=== PATIENT | male | born 1980 | race Caucasian/White ===

== ENCOUNTER 2024-08-25 15:24 | Emergency (ER) | payer MEDICAID, SELFPAY ==
--- NOTE | 2024-08-25 | ECG_ITS ---
Test Reason : leg swelling Blood Pressure : */* mmHG Vent. Rate : 61 BPM Atrial Rate : 61 BPM P-R Int : 182 ms QRS Dur : 90 ms QT Int : 430 ms P-R-T Axes : 32 16 18 degrees QTcB Int : 432 ms Normal sinus rhythm Normal ECG No previous ECGs available Referred By: Generic ED Physician Electronically Signed By: Yeison Whipple
[2024-08-25 15:26] VITALS: BP 123/59; PULSE 68; RESP 18; TEMP 36.2; O2SAT 97; BMI 36.7
[2024-08-25 15:50] LABS: MANUAL DIFF FLAG NO
[2024-08-25 15:51] LABS: Hematocrit 37.1 % (42.0-52.0); Hemoglobin 12.8 g/dl (14.0-18.0); Imm Gran Abs Auto 0.02 X10*3/uL (0.00-0.03); Imm Gran Pct Auto 0.3 % (0.0-0.4); Lymphocytes Absolute Auto 2.1 X10*3/uL (1.2-4.9); Mean Corpuscular HGB Conc 34.5 g/dl (31.0-36.0); Mean Corpuscular Hemoglobin 29.7 pg (27.0-33.0); Mean Corpuscular Volume 86.1 fL (80.0-98.0); NRBC Abs Auto 0.000 X10*3/uL (0.0-0.012); NRBC Pct Auto 0.0 /100WBC (0.0-0.2); Platelet Count 184 X10*3/uL (160-400); Red Blood Count 4.31 X10*6/uL (4.60-5.80); White Blood Count 7.7 X10*3/uL (4.8-10.8)
[2024-08-25 16:08] LABS: Alanine Aminotransferase 25 U/L (0-40); Albumin Level 4.2 g/dL (3.5-5.0); Alkaline Phosphatase 72 U/L (39-117); Anion Gap 9 (12-20); Aspartate Amino Transferase 26 U/L (5-37); Blood Urea Nitrogen 14 mg/dL (9-16); Calcium 8.8 mg/dL (8.4-10.2); Carbon Dioxide 32 mmol/L (22-29); Chloride 103 mmol/L (96-108); Creatinine Clr Calc Pharmacy 116.9; Estimated Glomerular Filt Rate > 60; Magnesium 1.8 mg/dL (1.6-2.6); Potassium 4.4 mmol/L (3.3-5.1); Sodium 140 mmol/L (135-145); Total Protein 7.0 g/dL (6.5-8.0)
[2024-08-25 16:11] LABS: B Type Natriuretic Peptide 24 pg/mL (<100)
[2024-08-25 18:09] VITALS: BP 105/50; PULSE 52; RESP 16; TEMP 36.6; O2SAT 95
--- NOTE | 2024-08-25 18:11 | ED.GENADULT ---
HPI - General Adult General Chief complaint: General Medical Stated complaint: Swollen ankles Time Seen by Provider: 08/25/24 18:08 Source: patient Limitations: no limitations History of Present Illness ED Provider: Slime Teague PA-C HPI narrative: 43-year-old male with a history of opiate use disorder presents with bilateral lower extremity swelling for 3 days. Patient states he has had prior episodes that have resolved on their own. Denies chest pain, shortness of breath, orthopnea. Denies redness of lower extremity or fever. Related Data Allergies Allergy/AdvReac Type Severity Reaction Status Date / Time No Known Allergies Allergy Verified 08/25/24 15:29 Review of Systems Review of Systems: Yes all other systems are reviewed and are negative Constitutional: Constitutional: Denies fatigue and Denies fever(s) Cardiovascular: Cardiovascular: Denies chest pain, Reports leg edema, Denies dyspnea and Denies dyspnea on exertion Respiratory: Respiratory: Denies dyspnea and Denies dyspnea on exertion Musculoskeletal: Musculoskeletal: Denies arthralgias Integumentary/Breasts: Skin/Breast: Denies erythema Endocrine: Endocrine: Denies fatigue PMFSH Past Medical History Attestation statement: The following information was validated with the patient. Social History Social History Alcohol intake: current Alcohol type: beer and hard liquor Smoked in Last 30 Days: Yes Use of substances other than those prescribed or required for medical reasons: Yes Substance Use Type: Marijuana Advance Directives: No Advance Directives Information Provided: No Physical Exam ED Vital Signs: Vital Signs - 24 hr 08/25/24 15:26 08/25/24 18:09 Temperature 97.1 F 98 F Pulse Rate 68 52 Respiratory Rate 18 16 Blood Pressure 123/59 L 105/50 L Pulse Oximetry 97 95 Oxygen Delivery Method Room Air Room Air BMI result Body Mass Index 36.7 Const Other: Alert Orientation/consciousness: patient oriented x3 Resp Effort & Inspection: normal respiratory effort Cardio Other: Normal peripheral perfusion Skin Other: Warm dry no rash Neuro General: patient oriented x3, gait normal, no focal motor deficits and CN's II-XI intact bilaterally Extrem Other: Pitting edema noted bilaterally, the lower extremities are symmetric, they both are swollen, subtle hyperpigmentation of the skin, no overlying erythema or overt warmth Psych Other: Cooperative Medical Decision Making Medical Decision Making [facility] Narrative: 43-year-old male with a history of opiate use disorder presents with bilateral lower extremity swelling for 3 days. Patient states he has had prior episodes that have resolved on their own. Denies chest pain, shortness of breath, orthopnea. Denies redness of lower extremity or fever. Problem: Opiate use disorder History: Per patient I have considered the following differential diagnoses: Medication adverse reaction, DVT, new heart failure, liver dysfunction, renal dysfunction Plan: Screening labs including BNP, metabolic panel and liver function obtained from triage, everything is normal. The patient has had symptoms in the past and then they resolved. At this time the patient has dependent edema. He is on multiple medications, including gabapentin, which can cause peripheral edema. I have discussed with the patient he needs to follow up with the his prescriber, to either discontinue the gabapentin in place him on another medication for his chronic pain, versus implementing Lasix. At this time I am suggesting compression sleeves. I have independently reviewed the following tests: Labs: No leukocytosis, not anemic, BNP not elevated, liver function normal, creatinine 1.06 Lab Data 08/25/24 15:41 08/25/24 15:41 Labs: Lab Results 08/25/24 Range/Units 15:41 WBC 7.7 (4.8-10.8) X10*3/uL RBC 4.31 L (4.60-5.80) X10*6/uL Hgb 12.8 L (14.0-18.0) g/dl Hct 37.1 L (42.0-52.0) % MCV 86.1 (80.0-98.0) fL MCH 29.7 (27.0-33.0) pg MCHC 34.5 (31.0-36.0) g/dl RDW 12.9 (11.0-16.0) % Plt Count 184 (160-400) X10*3/uL MPV 8.9 L (9.4-12.4) fL Immature Gran % (Auto) 0.3 (0.0-0.4) % Neut % (Auto) 59.6 (45-73) % Lymph % (Auto) 27.4 (20-40) % [place] % (Auto) 9.9 (2-11) % Eos % (Auto) 2.3 (0-4) % Baso % (Auto) 0.5 (0-2) % Lymph # (Auto) 2.1 (1.2-4.9) X10*3/uL [place] # (Auto) 0.8 (0.1-1.2) X10*3/uL Eos # (Auto) 0.2 (0.0-0.4) X10*3/uL Baso # (Auto) 0.0 (0.0-0.2) X10*3/uL Abs Immat Gran (auto) 0.02 (0.00-0.03) X10*3/uL Absolute Neuts (auto) 4.6 (2.0-8.3) x10*3/uL Absolute Nucleated RBC 0.000 (0.0-0.012) X10*3/uL Nucleated RBC % (auto) 0.0 (0.0-0.2) /100WBC Sodium 140 (135-145) mmol/L Potassium 4.4 (3.3-5.1) mmol/L Chloride 103 (96-108) mmol/L Carbon Dioxide 32 H (22-29) mmol/L Anion Gap 9 L (12-20) BUN 14 (9-16) mg/dL Creatinine 1.06 (0.5-1.4) mg/dL Estim Creat Clear Calc 116.9 Estimated GFR > 60 Random Glucose 97 (60-115) mg/dL Calcium 8.8 (8.4-10.2) mg/dL Magnesium 1.8 (1.6-2.6) mg/dL Total Bilirubin 0.7 (0.0-1.0) mg/dL Direct Bilirubin 0.2 (0.0-0.5) mg/dL AST 26 (5-37) U/L ALT 25 (0-40) U/L Alkaline Phosphatase 72 (39-117) U/L B-Natriuretic Peptide 24 (<100) pg/mL Total Protein 7.0 (6.5-8.0) g/dL Albumin 4.2 (3.5-5.0) g/dL Discharge Plan Discharge Clinical Impression: Dependent edema Patient Disposition: Xfer Inpatient Rehab Fac Transfer Details: Already a patient there, being discharged back to the rehab Instructions: Leg Edema (ED) Additional Instructions: All of your screening labs were normal. You have dependent edema, likely induced by the gabapentin. You need to have discussion with your medication prescriber about stopping the gabapentin and trying a new medication for your pain, and/or implementing Lasix to alleviate the swelling. In the meantime, you can use compression stockings, they can be purchased anywhere; [place], [employer], [employer] etc. Print Language: Setswana
--- NOTE | 2024-08-25 18:40 | PC.NURSE ---
Spoke w/ recovery sales program manager Honey and per pts admission updated on pts care. Request to call if pt d/c'd will arrange transportation . If pt admitted, pt will not lose bed. [phone]
--- NOTE | 2024-08-26 18:18 | ECG_ITS ---
Test Reason : chf Blood Pressure : */* mmHG Vent. Rate : 47 BPM Atrial Rate : 47 BPM P-R Int : 194 ms QRS Dur : 92 ms QT Int : 470 ms P-R-T Axes : 40 18 15 degrees QTcB Int : 415 ms Sinus bradycardia Otherwise normal ECG When compared with ECG of 25-Aug-2024 15:33, No significant change was found Referred By: Kayla Reid Electronically Signed By: Yeison Whipple
== END 2024-08-25 20:00 ==
PROVIDERS: Emergency Provider Emergency Medicine Emergency Medical Services
DX: R60.0 Localized edema (principal); R06.02 Shortness of breath; R00.1 Bradycardia, unspecified; Z79.899 Other long term (current) drug therapy
CPT/HCPCS: 36415; 80053; 82248; 83735; 83880; 85025; 93005; 99283; 99284

== ENCOUNTER → 2024-08-25 15:33 | Outpatient (BNV) | payer MEDICAID, SELFPAY | PROVIDERS: Emergency Provider Emergency Medicine Emergency Medical Services; Visit Provider Internal Medicine Cardiovascular Disease | DX: R22.43 Localized swelling, mass and lump, lower limb, bilateral (principal) | CPT/HCPCS: 93010 ==

== ENCOUNTER → 2024-08-26 18:18 | Outpatient (BNV) | payer MEDICAID, SELFPAY | PROVIDERS: Emergency Provider Emergency Medicine Emergency Medical Services; Visit Provider Internal Medicine Cardiovascular Disease | DX: R00.1 Bradycardia, unspecified (principal) | CPT/HCPCS: 93010 ==

== ENCOUNTER 2024-10-25 15:18 | Emergency (ER) | payer MEDICAID, SELFPAY ==
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
--- OUTSIDE RECORDS SUMMARY | 2024-09-23 05:00 | XMS_ITS ---
Author Organization [facility] Address [address] [place] [id number] Care Team Providers Care Civil Attorney Name Role Phone Octaviano Seay Primary Care Provider REASON FOR VISIT Office: f/u appt, [facility] [place] Social History Sex Assigned At : Social History Observation Description Sex Assigned At Male Encounters Encounter Location Date Provider Diagnosis [facility] [address] [place] [phone] 09/23/2024 Octaviano Seay Encounter for screening for COVID-19 Z11.52 Assessments Encounter Date Diagnosis (ICD Code) Assessment Notes Treatment Notes Treatment Clinical Notes Section Notes 09/23/2024 Encounter for screening for COVID-19 (ICD-10 - [...] you are having concerning symptoms for COVID-19. 09/23/2024 Other Plan Of Treatment Treatment Notes Assessment [...] symptoms for COVID-19. Next Appt Details Provider Name:Kathy Franklin, 10/27/2024 10:30:00 AM, [address] [place] [address], [phone], Provider Name:Octaviano austin, 11/09/2024 10:30:00 AM, [address] [place] [address], [phone], Progress Notes * Mikael ANG MDOB: 0 (43 yo M)Acc No.[id number]:09/23/2024 Progress Notes Patient: Mikael CONTE Provider: CHELLE Ortiz :1980 A ge:43 Y S ex:Male Date:09/23/2024 Address:[address] [place], [place] [id number] Subjective: * Chief Complaints: * 1 . Office: f/u appt, [facility]. * HPI: G eneral: Symptom Screen: - [...] days? If so where and why? RN/MA:. * ROS: N o acute C/P no acute SOB, No problem with urine, No heartburn or abdominal pain. Endorses being able to climb one fight of stairs without stopping due to SOB, Mood: stable, appetite: good, sleeping well. Denies new skin rashes. * Medical History: Objective: * Vitals: Assessment: * Assessment: 1. E ncounter for screening for COVID-19 - Z11.52 (Primary) Plan: * Treatment: * Images: Billing Information: * Visit Code: * Procedure Codes: Care Plan Details* * Electronic signature of Davy Seay on 10/25/2024 at 08:03 PM EDT Sign off status: Pending * Provider: CHELLE Ortiz Date: 0 09/23/2024 Generated for Maura campbell/Crystal/Elviaitting on: 0 10/25/2024 08:03 PM EDT
--- NOTE | ~2024-10-25 | CT_ITS ---
CLINICAL HISTORY: left ureteral stone? CT abdomen and pelvis without contrast Comparison: None provided Findings: Limited evaluation of soft tissues and solid organs in the absence of IV contrast. Mild bibasilar linear densities. Liver, spleen, adrenal glands, gallbladder, and pancreas are unremarkable. No renal, ureteral or bladder calculi. Mild circumferential bladder wall thickening. Normal-sized prostate gland. Nondistended stomach. Normal caliber small bowel. No obstruction. No acute appendicitis. Nonaneurysmal abdominal aorta. No free air or free fluid. No pathologically enlarged lymph nodes. No acute osseous abnormality. No lytic or sclerotic osseous lesions. Moderate-sized fat containing right inguinal hernia. Impression: 1. No acute findings identified in the abdomen or pelvis within limitation of this noncontrast exam. 2. Specifically, no evidence of obstructing renal, ureteral or bladder calculi. 3. Chronic/nonacute findings as above. This document has been electronically signed by: Zabrina Ewing MD on 10/25/2024 22:10:33
[2024-10-25 15:22] VITALS: BP 129/61; PULSE 66; RESP 16; TEMP 36.7; O2SAT 92; BMI 40.5
--- NOTE | 2024-10-25 15:22 | ED.GENADULT ---
HPI - General Adult General Chief complaint: Abdominal Pain Stated complaint: left side abd pain Time Seen by Provider: 10/25/24 20:14 Source: patient Limitations: no limitations History of Present Illness ED Provider: Slime Teague PA-C HPI narrative: 43-year-old male presents with left lower quadrant pain x4 days. Pain is constant nonradiating, unable to describe the nature of his discomfort. Associated discolored urine. Denies history of kidney stones, back pain, fever, dysuria. Denies nausea vomiting diarrhea. Related Data Previous Rx's ?Medication ?Instructions ?Recorded ketorolac 10 mg tablet 10 mg PO Q6H PRN pain #20 tabs 10/25/24 Allergies Allergy/AdvReac Type Severity Reaction Status Date / Time No Known Allergies Allergy Verified 10/25/24 15:24 Review of Systems Review of Systems: Yes all other systems are reviewed and are negative Constitutional: Constitutional: Denies fatigue and Denies fever(s) Cardiovascular: Cardiovascular: Denies chest pain and Denies dyspnea Respiratory: Respiratory: Denies dyspnea Gastrointestinal: Gastrointestinal: Reports abdominal pain, Denies diarrhea, Denies nausea and Denies vomiting Genitourinary: Genitourinary: Reports hematuria, Denies dysuria and Denies flank pain Musculoskeletal: Musculoskeletal: Denies back pain Endocrine: Endocrine: Denies fatigue PMFSH Past Medical History Attestation statement: The following information was validated with the patient. Social History Social History Alcohol intake: never Substance Use Type: Marijuana Physical Exam ED Vital Signs: Vital Signs - 24 hr 10/25/24 15:22 10/25/24 20:22 Temperature 98.1 F 97.7 F Pulse Rate 66 61 Respiratory Rate 16 16 Blood Pressure 129/61 110/53 L Pulse Oximetry 92 91 L Oxygen Delivery Method Room Air Room Air BMI result Body Mass Index 40.5 Const Other: Alert well-appearing Orientation/consciousness: patient oriented x3 Resp Effort & Inspection: normal respiratory effort Cardio Other: Normal peripheral perfusion GI Other: Abdomen is soft, nondistended, mild tenderness left lower abdomen without guarding General: Yes no CVA tenderness Back/Spine/Pelvis Back: no CVA tenderness Skin Other: Warm dry no rash Neuro General: patient oriented x3, gait normal, no focal motor deficits and CN's II-XI intact bilaterally Psych Other: Cooperative Course Course Course Narrative: Rapid medical examination performed in triage by Nia Cary PA-C. Patient is a 43 year old assigned male at presenting to the emergency department with abdominal pain. Patient states over the last 4 days he has had left lower abdominal pain. Detailed physical exam and review of systems are deferred to the photoengraving proofer. Labs ordered. Patient placed back in the waiting room pending room availability and results. Medications Administered Discontinued Medications Generic Name Dose Route Start Last Admin Trade Name Frekeegan PRN Reason Stop Dose Admin Ketorolac Tromethamine 15 mg 10/25/24 20:41 10/25/24 21:03 Ketorolac Tromethamine 15 Mg/Ml Vial IM 10/25/24 20:42 15 mg ONCE ONE Administration Medical Decision Making Medical Decision Making [facility] Narrative: 43-year-old male presents with left lower quadrant pain x4 days. Pain is constant nonradiating, unable to describe the nature of his discomfort. Associated discolored urine. Denies history of kidney stones, back pain, fever, dysuria. Denies nausea vomiting diarrhea. No known chronic issues History: Per patient I have considered the following differential diagnoses: Urinary tract infection, renal colic, pyelonephritis, diverticulitis, Plan: Patient here with focal left lower abdominal pain, thought about diverticulitis, however no active GI symptoms including diarrhea. He is expressing concern for discoloration of his urine, he is passing hematuria, perhaps he is having symptoms of renal colic. Obtaining a CT scan. Doubtful to be pyelonephritis, he has no CVA tenderness, again no active GI symptoms is afebrile. I have independently reviewed the following tests: Labs: No leukocytosis, not anemic, no electrolyte abnormality, urine not infected passing hematuria CT abdomen and pelvis:Impression: 1. No acute findings identified in the abdomen or pelvis within limitation of this noncontrast exam. 2. Specifically, no evidence of obstructing renal, ureteral or bladder calculi. 3. Chronic/nonacute findings as above. Differential Diagnosis Differential Diagnoses: The differential diagnosis associated with the presentation includes See medical decision-making Admission/Observation Consideration of admission/observation: Escalation of care including admission/observation considered Not applicable Lab Data [facility] Lab Attestation statement: I reviewed the patient's lab results. 10/25/24 15:38 10/25/24 15:38 Labs: Lab Results 10/25/24 10/25/24 Range/Units 15:38 20:12 WBC 7.7 (4.8-10.8) X10*3/uL RBC 4.37 L (4.60-5.80) X10*6/uL Hgb 13.0 L (14.0-18.0) g/dl Hct 37.5 L (42.0-52.0) % MCV 85.8 (80.0-98.0) fL MCH 29.7 (27.0-33.0) pg MCHC 34.7 (31.0-36.0) g/dl RDW 12.8 (11.0-16.0) % Plt Count 210 (160-400) X10*3/uL MPV 9.4 (9.4-12.4) fL Immature Gran % (Auto) 0.4 (0.0-0.4) % Neut % (Auto) 49.5 (45-73) % Lymph % (Auto) 33.6 (20-40) % [place] % (Auto) 11.7 H (2-11) % Eos % (Auto) 4.0 (0-4) % Baso % (Auto) 0.8 (0-2) % Lymph # (Auto) 2.6 (1.2-4.9) X10*3/uL [place] # (Auto) 0.9 (0.1-1.2) X10*3/uL Eos # (Auto) 0.3 (0.0-0.4) X10*3/uL Baso # (Auto) 0.1 (0.0-0.2) X10*3/uL Abs Immat Gran (auto) 0.03 (0.00-0.03) X10*3/uL Absolute Neuts (auto) 3.8 (2.0-8.3) x10*3/uL Absolute Nucleated RBC 0.000 (0.0-0.012) X10*3/uL Nucleated RBC % (auto) 0.0 (0.0-0.2) /100WBC Sodium 140 (135-145) mmol/L Potassium 4.4 (3.3-5.1) mmol/L Chloride 105 (96-108) mmol/L Carbon Dioxide 28 (22-29) mmol/L Anion Gap 11 L (12-20) BUN 16 (9-16) mg/dL Creatinine 1.09 (0.5-1.4) mg/dL Estim Creat Clear Calc 116.3 Estimated GFR > 60 Random Glucose 93 (60-115) mg/dL Calcium 8.8 (8.4-10.2) mg/dL Magnesium 1.7 (1.6-2.6) mg/dL Total Bilirubin 0.5 (0.0-1.0) mg/dL AST 29 (5-37) U/L ALT 27 (0-40) U/L Alkaline Phosphatase 80 (39-117) U/L Total Protein 7.5 (6.5-8.0) g/dL Albumin 4.2 (3.5-5.0) g/dL Urine Color Yellow Urine Appearance Clear Urine pH 6.0 (5.0-9.0) Ur Specific [place] 1.020 (1.005-1.025) Urine Protein Negative (Neg-Trace) mg/dL Urine Glucose (UA) Negative (Negative) mg/dL Urine Ketones Negative (Negative) mg/dL Urine Blood Trace H (Negative) Urine Nitrite Negative (Negative) Ur Leukocyte Esterase Trace H (Negative) Urine RBC 3-5 H (0-2) /HPF Urine WBC 0-5 (0-5) /HPF Ur Squamous Epith Cells 0-2 (0-2) /HPF Urine Bacteria None Seen (None Seen) Hyaline Casts 0-2 (0-2) /LPF Radiology Impression Discussion of test interpretation with radiology: I have reviewed the radiologist's reading. Discharge Plan Discharge Clinical Impression: Hematuria Patient Disposition: Home, Self-Care Instructions: Hematuria (ED) Additional Instructions: All of your screening labs were overall normal, with the exception of your urinalysis, you are passing blood in your urine, but there was no infection. The CT scan of your abdomen and pelvis was normal as well. You need to follow up with our urology service for further assessment. I am providing you with a contact. Call tomorrow to schedule a follow up appointment. Use the ketorolac as needed for pain, take this medication with food. Prescriptions: New ketorolac 10 mg tablet 10 mg PO Q6H PRN (Reason: pain) Qty: 20 0RF Rx Instructions: maximum total duration of 5 days from all oral, intranasal, or parenteral formulations. The patient received an intramuscular dose of Toradol here in the emergency room Referrals: Fuad Haddad MD [Physician, Urology] Referral Note: hematuria Interventions: ED Discharge Assessment Last Done: 10/25/24 23:21 Discharge Date/Time: 10/25/24 23:22 Print Language: Chinese
[2024-10-25 15:41] LABS: MANUAL DIFF FLAG NO
[2024-10-25 15:43] LABS: Hematocrit 37.5 % (42.0-52.0); Hemoglobin 13.0 g/dl (14.0-18.0); Imm Gran Abs Auto 0.03 X10*3/uL (0.00-0.03); Imm Gran Pct Auto 0.4 % (0.0-0.4); Lymphocytes Absolute Auto 2.6 X10*3/uL (1.2-4.9); Mean Corpuscular HGB Conc 34.7 g/dl (31.0-36.0); Mean Corpuscular Hemoglobin 29.7 pg (27.0-33.0); Mean Corpuscular Volume 85.8 fL (80.0-98.0); NRBC Abs Auto 0.000 X10*3/uL (0.0-0.012); NRBC Pct Auto 0.0 /100WBC (0.0-0.2); Platelet Count 210 X10*3/uL (160-400); Red Blood Count 4.37 X10*6/uL (4.60-5.80); White Blood Count 7.7 X10*3/uL (4.8-10.8)
[2024-10-25 16:04] LABS: Alanine Aminotransferase 27 U/L (0-40); Albumin Level 4.2 g/dL (3.5-5.0); Alkaline Phosphatase 80 U/L (39-117); Anion Gap 11 (12-20); Aspartate Amino Transferase 29 U/L (5-37); Blood Urea Nitrogen 16 mg/dL (9-16); Calcium 8.8 mg/dL (8.4-10.2); Carbon Dioxide 28 mmol/L (22-29); Chloride 105 mmol/L (96-108); Creatinine Clr Calc Pharmacy 116.3; Estimated Glomerular Filt Rate > 60; Magnesium 1.7 mg/dL (1.6-2.6); Potassium 4.4 mmol/L (3.3-5.1); Sodium 140 mmol/L (135-145); Total Protein 7.5 g/dL (6.5-8.0)
--- OUTSIDE RECORDS SUMMARY | 2024-10-25 20:04 | XMS_ITS | Patient Health Record ---
Author Organization 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 Name Role Phone Octaviano Seay Primary Care Provider [phone] Kathy Franklin Unavailable [phone] [facility], Nursing Unavailable [phone] Mira Rizzo Unavailable [phone] Allergies No Known Allergies Results Component Value Reference Range Notes RAPID PLASMA REAGIN WITH REF CHRISTIANO TO TITER Reviewed date:04/14/2024 07:14:31 PM Interpretation:Positive Performing Lab: Notes/Report: RPR Reactive Nonreactive RAPID PLASMA REAGIN WITH REF CHRISTIANO TO TITER Reviewed date:04/30/2024 05:26:14 PM Interpretation:onnreactive Performing Lab: Notes/Report: RPR Nonreactive Nonreactive COMPREHENSIVE METABOLIC PANE L Reviewed date:01/09/2024 11:38:28 AM Interpretation:Normal Performing Lab: Notes/Report: Sodium 139 133-145 mmol/L Potassium 4.3 3.5-5.5 mmol/L Chloride 105 96-110 mmol/L CO2 28 21-32 mmol/L Anion Gap 6 3-11 Glucose 148 70-100 mg/dL BUN 15 5-25 mg/dL Creatinine 0.97 0.70-1.30 mg/dL eGFR 99 >=60 mL/min/1.73m2 Calculati on based on the?Chronic Kidney Disease Epidemiology Collaboration (CKD-EPI) equation refit?without adjustment for race. BUN/Creatinine Ratio 15.5 Calcium 8.9 8.5-10.5 mg/dL AST (SGOT) 15 10-42 unit/L ALT (SGPT) 20 10-60 unit/L Alkaline Phosphatase 92 42-121 unit/L Total Protein 7.2 6.0-8.0 g/dL Albumin 3.7 3.2-5.0 g/dL Total Bilirubin 0.3 0.0-1.4 mg/dL COMPLETE BLOOD COUNT Reviewed date:01/09/2024 11:37:29 AM Interpretation:Abnormal Performing Lab: Notes/Report: WBC 8.0 4.8-10.8 K/mcL RBC 4.40 4.50-5.50 M/mcL Hemoglobin 13.1 13.5-17.5 g/dL Hematocrit 40.4 42.0-54.0 % MCV 91.2 79.0-98.0 FL MCH 29.6 27.0-32.0 pcg MCHC 32.4 32.0-37.0 g/dL RDW 12.8 11.0-15.0 % Platelets 220 130-400 K/mcL MPV 10.9 7.0-11.0 FL NRBC 0.0 <1.0 % NRBC Absolute 0.00 <0.10 K/mcL PROTHROMBIN TIME WITH INR Reviewed date:01/09/2024 11:36:03 AM Interpretation:Normal Performing Lab: Notes/Report: Protime 12.6 10.6-13.9 sec INR 1.0 HEPATITIS C VIRUS QUANTITATI VE MOLECULAR STUDY Reviewed date:01/16/2024 09:46:21 AM Interpretation:Positive Performing Lab: Notes/Report: HCV Qual Interp Detected Not Detected HCV RNA Quantitative 36 <12 I Unit/mL HCV RNA Quantitative Log 1.56 <1.08 Log IU/mL HEPATITIS A ANTIBODY TOTAL W ITH REFLEX IGM Reviewed date:01/09/2024 11:36:55 AM Interpretation:no Hep A immunity Performing Lab: Notes/Report: Over the counter supplements containing high doses of biotin may interfere with this assay. If interference is suspected, patients shoud be retested after refraining from biotin supplements for 72 hours. Hep A Total Ab Negative Negative AST, ALT, BILIRUBIN ELR STAT E REPORTABLES Reviewed date:01/09/2024 11:35:56 AM Interpretation:Normal Performing Lab: Notes/Report: ALT (SGPT) 20 10-60 unit/L AST (SGOT) 15 10-42 unit/L Total Bilirubin 0.3 0.0-1.4 mg/dL LIVER FIBROSIS, FIBROTEST-AC TITEST PANEL Reviewed date:01/20/2024 07:03:39 AM Interpretation:f1 Performing Lab: Notes/Report: Fibrosis Score 0.28 Fibrosis Stage F1 Fibrosis Interpretation SEE NOTE minimal fibrosis Fibro Test Score (f) Metavir Score f>=0 and f<=0.21 : F0 (no fibrosis) f>0.21 and f<=0.27 : F0-F1 (no fibrosis) f>0.27 and f<=0.31 : F1 (minimal fibrosis) f>0.31 and f<=0.48 : F1-F2 (minimal fibrosis) f>0.48 and f<=0.58 : F2 (moderate fibrosis) f>0.58 and f<=0.72 : F3 (advanced fibrosis) f>0.72 and f<=0.74 : F3-F4 (advanced fibrosis) f>0.74 and f<=1.00 : F4 (severe fibrosis) Necroinflammat Activity Score 0.01 Necroinflammat Activity Grade A0 Necroinflammat Interpretation SEE NOTE no activity ActiTest Score (a) Metavir Score a>=0 and a<=0.17 : A0 (no activity) a>0.17 and a<=0.29 : A0-A1 (no activity) a>0.29 and a<=0.36 : A1 (minimal activity) a>0.36 and a<=0.52 : A1-A2 (minimal activity) a>0.52 and a<=0.60 : A2 (significant activity) a>0.60 and a<=0.62 : A2-A3 (significant activity) a>0.62 and a<=1.00 : A3 (severe activity) Bilirubin Total 0.3 0.2-1.2 mg/dL Gamma Glutamyl Transferase (GGT) 31 3-95 U/L Alanine Aminotransferase (ALT) 7 9-46 U/L [id number] 346 106-279 mg/dL Haptoglobin 158 43-212 mg/dL Apolipoprotein A1 156 94-176 mg/dL Reference ID [id number] Footnote SEE NOTE The reliability of results is dependent on compliance with the preanalytical and analytical conditions recommended by [employer]. The tests have to be deferred for: acute hemolysis, acute hepatitis, acute inflammation, extra hepatic cholestasis. The advice of a specialist should be sought for interpretation in chronic hemolysis and Gilbert's syndrome. The test interpretation is not validated in liver transplant patients. Isolated extreme values of one of the components should lead to caution in interpreting the results. In case of discordance between a biopsy result and a test, it is recommended to seek the advice of a specialist. The causes of these discordances could be due to a flaw of the test or to a flaw in the biopsy: i.e. a liver biopsy has a 33% variability rate for one fibrosis stage. FibroTest is interpretable for chronic hepatitis B and C, alcoholic and non alcoholic steatosis. ActiTest is interpretable for chronic hepatitis B and C. The performance characteristics have been determined by [facility]. It has not been cleared or approved by the U.S. Food and Drug Administration. Performance characteristics refer to the analytical performance of the test. [employer], the associated logo, [employer] and all associated [employer] are the registered trademarks of [employer]. All third libertarian rodriguez - (R) and (TM) - are the property of their respective owners. (C) 4113-1102 [employer]. All rights reserved. Test Performed at: [facility] [address] [place] [id number] Harshil Rios MD, PhD, LIAT URINALYSIS WITH REFLEX MICRO SCOPIC Reviewed date:04/14/2024 01:03:31 AM Interpretation:Abnormal Performing Lab: Notes/Report: Specific [place] Urine 1.023 1.003-1.030 pH, Urine 6.0 5.0-8.0 pH Leukocytes, Urine Moderate Negative Nitrite, Urine Negative Negative Protein, Urine Negative <=Trace mg/dL Glucose, Urine Negative Negative mg/dL Ketones, Urine Negative Negative mg/dL Urobilinogen, Urine 1.0 0.2-1.0 mg/dL Bilirubin, Urine Negative Negative Blood, Urine Negative Negative RBC, Urine 2.3 0-4 /HPF WBC, Urine 17.3 0-4 /HPF Squamous Epithelial, Urine >100 0-60 /LPF Bacteria, Urine Negative Negative /HPF Hyaline Casts, Urine 3.2 0-3 /LPF CULTURE URINE Reviewed date:04/22/2024 11:23:08 AM Interpretation:Negative Performing Lab: Notes/Report: Culture, Urine No growth COMPREHENSIVE METABOLIC PANE L Reviewed date:04/14/2024 01:02:37 AM Interpretation:Normal Performing Lab: Notes/Report: Sodium 137 133-145 mmol/L Potassium 4.2 3.5-5.5 mmol/L Chloride 105 96-110 mmol/L CO2 30 21-32 mmol/L Anion Gap 2 3-11 Glucose 88 70-100 mg/dL BUN 13 5-25 mg/dL Creatinine 0.80 0.70-1.30 mg/dL eGFR 112 >=60 mL/min/1.73m2 Calculati on based on the Chronic Kidney Disease Epidemiology Collaboration (CKD-EPI) equation refit without adjustment for race. BUN/Creatinine Ratio 16.3 Calcium 9.0 8.5-10.5 mg/dL AST (SGOT) 24 10-42 unit/L ALT (SGPT) 25 10-60 unit/L Alkaline Phosphatase 97 42-121 unit/L Total Protein 7.4 6.0-8.0 g/dL Albumin 3.5 3.2-5.0 g/dL Total Bilirubin 0.5 0.0-1.4 mg/dL COMPLETE BLOOD COUNT Reviewed date:04/13/2024 05:29:45 PM Interpretation:Normal Performing Lab: Notes/Report: WBC 8.4 4.8-10.8 K/mcL RBC 4.50 4.50-5.50 M/mcL Hemoglobin 13.6 13.5-17.5 g/dL Hematocrit 41.9 42.0-54.0 % MCV 92.5 79.0-98.0 FL MCH 30.0 27.0-32.0 pcg MCHC 32.5 32.0-37.0 g/dL RDW 12.8 11.0-15.0 % Platelets 241 130-400 K/mcL MPV 9.9 7.0-11.0 FL NRBC 0.0 <1.0 % NRBC Absolute 0.00 <0.10 K/mcL TREPONEMA PALLIDUM ANTIBODY WITH REFLEX TO RPR AND PARTICLE AGGLUTINATION Reviewed date:04/14/2024 01:03:04 AM Interpretation:Positive Performing Lab: Notes/Report: T. Pallidum Antibodies Positive Negative HIV 1, 2 ANTIBODY, P24 ANTIG EN WITH REFLEX TO DIFFERENTIATION Reviewed date:04/14/2024 01:02:22 AM Interpretation:Negative Performing Lab: Notes/Report: This assay is a 4th generation assay allowing for earlier detection of HIV infection by detecting the presence of the HIV-1 p24 antigen as well as the traditional antibodies to HIV type 1 (including group O) and type 2. Use of a 4th generation assay is the current CDC recommendation for HIV screening. HIV Combo AB/AG Negative Negative CHLAMYDIA TRACHOMATIS AND NE ISSERIA GONORRHOEAE MOLECULAR STUDY Reviewed date:04/14/2024 07:14:06 PM Interpretation:Negative Performing Lab: Notes/Report: Neisseria gonorrhoeae PCR Negative Negative Chlamydia trachomatis PCR Negative Negative HEPATITIS C VIRUS QUANTITATI VE MOLECULAR STUDY Reviewed date:04/22/2024 11:23:56 AM Interpretation:Negative Performing Lab: Notes/Report: HCV Qual Interp Not Detected Not Detected HCV RNA not detected, unable to report quantitative results. RAPID PLASMA REAGIN TITER Reviewed date:04/22/2024 11:22:59 AM Interpretation:1:2 Performing Lab: Notes/Report: Rapid Plasma Reagin Titer 1:2 Nonreactive TREPONEMA PALLIDUM ANTIBODY Reviewed date:05/05/2024 03:23:19 PM Interpretation:reactive Performing Lab: Notes/Report: Treponema pallidum Antibody (TP-PA) Reactive Nonreactive Test performed at [facility], [address] [place] [address] Nita Cartagena MD, PhD - Compressor Station Chief Engineer Reason For Referral [facility], [address] [facility], [facility] [address], [place] [address] P: [phone] F: [phone] Dispense #1 pair, 30-40 mm Hg, calf high bilateral calf wraps Diagnosis 1 Peripheral vascular disease, unspecified (I73.9) Referral Organization [facility] Referring Provider First Name Octaviano Referring Provider Last Name Geena Referring Provider Speciality Nurse Prac titioner Referred Provider undefined Referred Provider Specialty Melissacellotilioou s General Notes Judy Marrufo 03:34:38 PM > Faxed to [facility] Referral Priority Routine Referral Appointment Date 04/20/2024 [facility] sur[facility], [address] [place] [address] P: [phone] F: [phone] evaluate right inguinal hernia Diagnosis 1 Unilateral inguinal hernia, with obstruction, without gangrene, not specified as recurrent (K40.30) Referral Organization [facility] Referring Provider First Name Maria Doloresjessica Referring Provider Last Name Cesarelder Referring Provider Speciality Nurse Sam sy Referred Provider Nikolay Lucero Referred Provider Specialty General Surg marco General Notes Judy Marrufo 03:38:02 PM > Faxed to [facility] general surgery, Judy Marrufo 09/08/2024 10:19:10 AM > scheduled 10/12/24 @10:15am, Alison Tang 10/25/2024 12:20:01 PM > pt no showed appt, soraya from [facility] called will follow up to r/s Referral Priority Routine Referral Appointment Date 10/12/2024 Medications Medication SIG (Take, Route, Frequency, Duration) Notes Start Date End Date Status traZODone 50 mg take 1-2 tablets ora lly at bedtime as needed for insomnia for 30 days Active methadone 10 mg/mL 135 mg orally once a day [facility] [facility] Active sertraline 50 mg 1 tab(s) orally once a day for 30 days Active Nicorette 4 mg 1 GUM by transmucosa l administration every 2 hours Active OLANZapine 5 mg 1 tab(s) orally once a day for 30 days Active ibuprofen 600 mg 1 tab(s) orally 3 times a day As needed Active clotrimazole topical 1% 1 kiesha applied to pically 2 times a day Active gabapentin 600 mg 1 tab(s) orally 3 ti mes a day for 30 days 06/24/2024 Active cloNIDine 0.1 mg 1 tab(s) orally 3 times a day as needed for anxiety for 30 days hold for systolic BP less than 90 Active hydrOXYzine hydrochloride 25 mg 1 tab(s) orally 3 times a day as needed for anxiety for 30 days Active Immunizations Vaccine Route Administration Date Status Comme nts Hepatitis A IM Intramuscular 10/16/2023 Administered [facility]: 42247-042-50 Social History Tobacco Use: Social History Observation [...] to shyanne t Patient counseled on the ofe gers of tobacco use and advised to quit: 03/30/2024 Problems Problem Type SNOMED Code ICD Code Onset Dates Problem Status W/U Status Risk Notes Problem Viral hepatitis type C (35657065) Unspecified viral hepatitis C without hepatic coma (B19.20) Active confirmed Problem Obesity (333944893) Obesity, unspecified (E66.9) Active confirmed Problem Opioid abuse (6348733) Opioid abuse, uncomplicated (F11.10) Active confirmed Problem Tobacco user (979980416) Nicotine dependence, cigarettes, uncomplicated (F17.210) Active confirmed Problem Moderate recurrent major depression (97490209) Major depressive disorder, recurrent, moderate (F33.1) Active confirmed Problem Affective psychosis (454209809) Unspecified mood [affective] disorder (F39) Active confirmed Problem Anxiety disorder (820402222) Anxiety disorder, unspecified (F41.9) Active confirmed Problem Posttraumatic stress disorder (42743600) Post-traumatic stress disorder, chronic (F43.12) Active confirmed Problem Insomnia disorder related to another mental disorder (05687005) Insomnia due to other mental disorder (F51.05) Active confirmed Problem Peripheral vascular disease (399333937) Peripheral vascular disease, unspecified (I73.9) Active confirmed Problem Localized, primary osteoarthritis of the ankle and/or foot (475233809) Primary osteoarthritis, left ankle and foot (M19.072) Active confirmed Problem Body mass index 35.00 to 39.99 (276488094318396) Body mass index [BMI] 36.0-36.9, adult (Z68.36) Active confirmed Problem Sheltered homelessness (427514647580324) Sheltered homelessness (Z59.01) Active confirmed Problem Cocaine abuse (42087140) Cocaine abuse, uncomplicated (F14.10) Inactive confirmed Problem Mental disorder (64000771) Mental disorder, not otherwise specified (F99) Inactive confirmed Problem Callosity (632889152) Corns and callosities (L84) Inactive confirmed Problem Homelessness (61486583) Homelessness (Z59.0) Inactive confirmed Problem Body mass index 30.00 to 34.99 (970800974896522) Body mass index (BMI) 33.0-33.9, adult (Z68.33) Inactive confirmed Vital Signs Temperature 97.1 degrees Fahrenheit 09/08/2024 Blood pressure diastolic 65 09/08/2024 Oximetry 93 09/08/2024 Height 69 in 09/08/2024 Blood pressure systolic 108 09/08/2024 Weight 263.0 lbs 09/08/2024 BMI 38.83 kg/m2 09/08/2024 Encounters Encounter Location Date Provider Diagnosis [address] [address] 01/08/2024 Nursing [facility] Encounter for screening, unspecified Z13.[address] [address] 02/16/2024 Eddieliza Casionan Pain in left foot M79.[address] [address] 03/30/2024 Kathy Franklin Opioid abuse, uncomplicated F11.10 ; Major depressive disorder, recurrent, moderate F33.1 ; Insomnia due to other mental disorder F51.05 ; Nicotine dependence, cigarettes, uncomplicated F17.210 ; Anxiety disorder, unspecified F41.9 ; Post-traumatic stress disorder, chronic F43.12 and Encounter for screening for COVID-[address] [address] 04/13/2024 Eddieliza Casionan Encounter for screening for COVID-19 Z11.52 ; Unspecified viral hepatitis C without hepatic coma B19.20 ; Encounter for screening for infections with a predominantly sexual mode of transmission Z11.3 ; Peripheral vascular disease, unspecified I73.9 ; Localized swelling, mass and lump, lower limb, bilateral R22.43 ; Body mass index [BMI] 36.0-36.9, adult Z68.36 ; Nicotine dependence, cigarettes, uncomplicated F17.210 ; Opioid abuse, uncomplicated F11.10 and Immunization not carried out because of patient decision for reasons of belief or group pressure Z28.[address] [address] 04/29/2024 Kathy Franklin Major depressive disorder, recurrent, moderate F33.1 ; Opioid abuse, uncomplicated F11.10 ; Insomnia due to other mental disorder F51.05 ; Nicotine dependence, cigarettes, uncomplicated F17.210 ; Anxiety disorder, unspecified F41.9 ; Post-traumatic stress disorder, chronic F43.12 ; Encounter for screening for COVID-19 Z11.52 and Syphilis, unspecified A53.[address] 04/29/2024 Eddieliza Casionan Encounter for screening for COVID-19 Z11.52 ; Unilateral inguinal hernia, with obstruction, without gangrene, not specified as recurrent K40.30 ; Nicotine dependence, cigarettes, uncomplicated F17.210 and Personal history of other infectious and parasitic diseases Z86.[address] 05/20/2024 Eddieliza Casionan Peripheral vascular disease, unspecified I73.[address] 06/24/2024 Kathy Franklin Major depressive disorder, recurrent, moderate F33.1 ; Opioid abuse, uncomplicated F11.10 ; Insomnia due to other mental disorder F51.05 ; Nicotine dependence, cigarettes, uncomplicated F17.210 ; Anxiety disorder, unspecified F41.9 ; Post-traumatic stress disorder, chronic F43.12 and Encounter for screening for COVID-[address] 09/08/2024 Kathy Franklin Unspecified mood [affective] disorder F39 ; Opioid abuse, uncomplicated F11.10 ; Anxiety disorder, unspecified F41.9 ; Post-traumatic stress disorder, chronic F43.12 ; Insomnia due to other mental disorder F51.05 ; Other assistant terminal manager (current) drug therapy Z79.899 and Encounter for screening for COVID-[address] [address] 10/25/2024 Eddieliza Casionan [address] 11/04/2023 Eddieliza Casionan [address] 01/05/2024 Eddieliza Casionan Unspecified viral hepatitis C without hepatic coma B19.[address] [address] 01/05/2024 Eddieliza Casionan [address] [address] 01/14/2024 Eddieliza Casionan [address] [address] 01/16/2024 Eddieliza Casionan [facility] [address] [place] [phone] 02/04/2024 Eddieliza Casionan [facility] [address] [place] [phone] 02/09/2024 Eddieliza Casionan Mental disorder, not otherwise specified [address] [address] 02/16/2024 Eddieliza Casionan Pain in left foot M79.672 [facility] [address] [place] [phone] 03/19/2024 Eddieliza Casionan [address] [address] 03/26/2024 Eddieliza Casionan Mental disorder, not otherwise specified [address] [address] 04/16/2024 Eddieliza Casionan Syphilis, unspecified A53.[address] [address] 06/22/2024 Kathy Franklin [address] [address] 09/08/2024 Eddieliza Casionan Assessments Encounter Date Diagnosis (ICD Code) Assessment Notes Treatment Notes Treatment Clinical Notes Section Notes 01/08/2024 Encounter for screening, unspecified (ICD-10 - Z13.9) Lab work drawn as ordered, per protocol using aseptic technique. Client will be notified of all lab values within two weeks, Client agrees with plan, allowed to clarify questions about plan. 02/16/2024 Pain in left foot (ICD-10 - M79.672) Will send for X-ray to check for osteo. Will send ATB for cellulitis when our e-Rx is not down 03/30/2024 Opioid abuse, uncomplicated (ICD-10 - F11.10) 03/30/2024 Major depressive disorder, recurrent, moderate (ICD-10 - F33.1) Reviewed hx of psychiatric illness, treatment received and medication trials with client. Discussed current medications as to indications, actions and side effects. Reviewed risks benefits of treatment versus non treatment. Medication education provided. Patient given opportunity to ask questions. Patient gives informed consent to proceed with prescribed treatment. 1. Mass MANUFACTURING ENGINEER ASSEMBLY reviewed: see Exam 2. Medications: At this time declines SSRI/SNRI, mirtazapine or Wellbutrin. PLan to discuss further next visit. 3. Psychotherapy: can see therapist as needed. 4. Labs/Procedures:se katz PCP at [facility]. 5. Exercise/Nutrition : sleep, regular exercise and nutrition all have a direct impact on our health and well-being. Keeping them in balance is especially important when we face stressful times in our lives. Eat balanced meals, get 6-8 hours of sleep a night, daily walking as able. 6. Understands plan and verbalizes agreement, allowed time for clarifying questions. 04/13/2024 Unspecified viral hepatitis C without hepatic coma (ICD-10 - B19.20) Agrees to go for liver US 04/13/2024 Encounter for screening for COVID-19 (ICD-10 - [...] you are having concerning symptoms for COVID-19. 04/29/2024 Major depressive disorder, recurrent, moderate (ICD-10 - F33.1) Reviewed hx of psychiatric illness, treatment received and medication trials with client. Discussed current medications as to indications, actions and side effects. Reviewed risks benefits of treatment versus non treatment. Medication education provided. Patient given opportunity to ask questions. Patient gives informed consent to proceed with prescribed treatment. 1. Mass MANUFACTURING ENGINEER ASSEMBLY reviewed: see Exam 2. Medications: At this time declines SSRI/SNRI, mirtazapine or Wellbutrin. PLan to discuss further next visit. 3. Psychotherapy: can see therapist as needed. 4. Labs/Procedures:se katz PCP at [facility] who will review RPR with clt. 5. Exercise/Nutrition : sleep, regular exercise and nutrition all have a direct impact on our health and well-being. Keeping them in balance is especially important when we face stressful times in our lives. Eat balanced meals, get 6-8 hours of sleep a night, daily walking as able. 6. Understands plan and verbalizes agreement, allowed time for clarifying questions. 04/29/2024 Unilateral inguinal hernia, with obstruction, without gangrene, not specified as recurrent (ICD-10 - K40.30) Requests referral to surgery 04/29/2024 Encounter for screening for COVID-19 (ICD-10 - Z11.52) Covid screening is negative. Discussed in detail with patient how to practice social distancing by avoiding public spaces and crowds now, wearing a mask in public to keep nose and mouth covered, and washing hands frequently especially before eating and after using the bathroom. Return to clinic if you develop any symptoms of concern to be rescreened or go to the emergency room if you are having concerning symptoms for COVID-19. 05/20/2024 Peripheral vascular disease, unspecified (ICD-10 - I73.9) PT with +3 pitting edema ankle to knee - left > right. PT reports that the swelling in his legs occurs intermittantly but this is the worst its been. PT denies CP/SOB reports feeling in his regular state of health other than the swelling. informed Emiliana IMPORTER OR EXPORTER of pt legs swollen - she instructed to call orthotics and prosthetics lab to f/u on compression stockings that were ordered previously. Call placed appointment scheduled for today at 130pm - pt notified and reports he will attend appoinment. 06/24/2024 Opioid abuse, uncomplicated (ICD-10 - F11.10) 06/24/2024 Major depressive disorder, recurrent, moderate (ICD-10 - F33.1) Reviewed hx of psychiatric illness, treatment received and medication trials with client. Discussed current medications as to indications, actions and side effects. Reviewed risks benefits of treatment versus non treatment. Medication education provided. Patient given opportunity to ask questions. Patient gives informed consent to proceed with prescribed treatment. 1. Mass MANUFACTURING ENGINEER ASSEMBLY reviewed: see Exam 2. Medications: At this time declines SSRI/SNRI, mirtazapine or Wellbutrin. PLan to discuss further next visit. 3. Psychotherapy: can see therapist as needed. 4. Labs/Procedures:se katz PCP at [facility] who will review RPR with clt. 5. Exercise/Nutrition : sleep, regular exercise and nutrition all have a direct impact on our health and well-being. Keeping them in balance is especially important when we face stressful times in our lives. Eat balanced meals, get 6-8 hours of sleep a night, daily walking as able. 6. Understands plan and verbalizes agreement, allowed time for clarifying questions. 09/08/2024 Unspecified mood [affective] disorder (ICD-10 - F39) Reviewed hx of psychiatric illness, treatment received and medication trials with client. Discussed current medications as to indications, actions and side effects. Reviewed risks benefits of treatment versus non treatment. Medication education provided. Patient given opportunity to ask questions. Patient gives informed consent to proceed with prescribed treatment. 1. [employer] reviewed: see Exam 2. Medications: now on Olanzapine, will require metaboilic monitoring. Will get labs at upcoming PCP visit. 3. Psychotherapy: has pillowcase cleaner at [facility] site. 4. Labs/Procedures: metabolic monitoring labs ordered for next visit. 5. Exercise/Nutrition : sleep, regular exercise and nutrition all have a direct impact on our health and well-being. Keeping them in balance is especially important when we face stressful times in our lives. Eat balanced meals, get 6-8 hours of sleep a night, daily walking as able. 6. Understands plan and verbalizes agreement, allowed time for clarifying questions. S/E of Antipsychotic Medication Olanzapine reviewed with client and may include but are not limited to: weight gain and metabolic syndrome, risk of EPS, sedation/dizziness , elevated prolactin, anticholinergic s/e, uncommon risk of TD and rare risk of NMS. Will require regular monitoring of wt, BP, Hgb A1C, lipids and AIMS exam. S/E of Sertaline reviewed with client. These may include but are not limited to: mild nausea, stomach pain, diarrhea, tremor, decreased appetite, sexual side effects, headache. Serious but rare side effects include but are not limited to: hyponatremia, mainly in elderly, GI bleeding especially when combines with NSAIDs such as ibuprofen. 01/05/2024 Unspecified viral hepatitis C without hepatic coma (ICD-10 - B19.20) 02/09/2024 Mental disorder, not otherwise specified (ICD-10 - F99) 02/16/2024 Pain in left foot (ICD-10 - M79.672) 03/26/2024 Mental disorder, not otherwise specified (ICD-10 - F99) 04/16/2024 Syphilis, unspecified (ICD-10 - A53.9) 03/30/2024 Insomnia due to other mental disorder (ICD-10 - F51.05) Not taking regularly. 04/13/2024 Encounter for screening for infections with a predominantly sexual mode of transmission (ICD-10 - Z11.3) request STI screening Denies symptoms 04/29/2024 Opioid abuse, uncomplicated (ICD-10 - F11.10) 04/29/2024 Nicotine dependence, cigarettes, uncomplicated (ICD-10 - F17.210) Continues to smoke 06/24/2024 Insomnia due to other mental disorder (ICD-10 - F51.05) Not taking regularly. Common Side Effects of Trazodone include but are not limited to drowsiness, dry mouth, dizziness or lightheadedness, orthostatic hypotension, headache, blurred vision, nausea and vomiting. Serious but rare s/e effects include but are not limited to sustained erection > 6 hours, advised if this happens to seek immediate medical attention. 09/08/2024 Opioid abuse, uncomplicated (ICD-10 - F11.10) Doing well in recovery. 03/30/2024 Nicotine dependence, cigarettes, uncomplicated (ICD-10 - F17.210) Declines MAT. 04/13/2024 Peripheral vascular disease, unspecified (ICD-10 - I73.9) BLE edema in the setting of methadone use and elevated BMI. Denies calf pain. Edema better in the morning and worse at the end of the day 04/29/2024 Insomnia due to other mental disorder (ICD-10 - F51.05) Not taking regularly. 04/29/2024 Personal history of other infectious and parasitic diseases (ICD-10 - Z86.19) No symptoms. No rash on palms or soles. Will recheck RPR 06/24/2024 Nicotine dependence, cigarettes, uncomplicated (ICD-10 - F17.210) Declines MAT. 09/08/2024 Anxiety disorder, unspecified (ICD-10 - F41.9) Common side effects of Hydroxyzine/Vistar il include but are not limited to: dizziness, drowsiness, blurred vision, dry mouth, stomach upset, or headache. Do not drive or perform activities which require concentration until you understand how Hydroxyzine affects you. Clonidine most common side effects include but are not limited to dry mouth, somnolence, dizziness, constipation, fatigue, headache. Serious but rare s/e include hypotension, syncope, orthostasis. Minimize s/e by administering at bedtime. Need to taper dose to avoid rebound hypertension. Common S/E of Gabapentin include but are not limited to: dizziness, somnolence, ataxia, wt gain. Serious but rare side effects multiorgan sensitivity DRESS), respiratory depression. FDA indicated for RLS, partial seizures, post herpetic neuralgia Off label uses: anxiety d/o, withdrawal from alcohol or benzos, alcohol dependence. 03/30/2024 Anxiety disorder, unspecified (ICD-10 - F41.9) Common side effects of Hydroxyzine/Vistar il include but are not limited to: dizziness, drowsiness, blurred vision, dry mouth, stomach upset, or headache. Do not drive or perform activities which require concentration until you understand how Hydroxyzine affects you. Common S/E of Gabapentin include but are not limited to: dizziness, somnolence, ataxia, wt gain. Serious but rare side effects multiorgan sensitivity DRESS), respiratory depression. FDA indicated for RLS, partial seizures, post herpetic neuralgia Off label uses: anxiety d/o, withdrawal from alcohol or benzos, alcohol dependence. 04/13/2024 Localized swelling, mass and lump, lower limb, bilateral (ICD-10 - R22.43) agrees to use compression wraps 04/29/2024 Nicotine dependence, cigarettes, uncomplicated (ICD-10 - F17.210) Declines MAT. 06/24/2024 Anxiety disorder, unspecified (ICD-10 - F41.9) Common side effects of Hydroxyzine/Vistar il include but are not limited to: dizziness, drowsiness, blurred vision, dry mouth, stomach upset, or headache. Do not drive or perform activities which require concentration until you understand how Hydroxyzine affects you. Increase gabaebtin dose as anxiety heightened due to living out. Common S/E of Gabapentin include but are not limited to: dizziness, somnolence, ataxia, wt gain. Serious but rare side effects multiorgan sensitivity DRESS), respiratory depression. FDA indicated for RLS, partial seizures, post herpetic neuralgia Off label uses: anxiety d/o, withdrawal from alcohol or benzos, alcohol dependence. 09/08/2024 Post-traumatic stress disorder, chronic (ICD-10 - F43.12) Can make appt with SOL Rizzo at [facility] when ready. 03/30/2024 Post-traumatic stress disorder, chronic (ICD-10 - F43.12) Clonidine most common side effects include but are not limited to dry mouth, somnolence, dizziness, constipation, fatigue, headache. Serious but rare s/e include hypotension, syncope, orthostasis. Minimize s/e by administering at bedtime. Need to taper dose to avoid rebound hypertension. 04/13/2024 Body mass index [BMI] 36.0-36.9, adult (ICD-10 - Z68.36) 04/29/2024 Anxiety disorder, unspecified (ICD-10 - F41.9) Common side effects of Hydroxyzine/Vistar il include but are not limited to: dizziness, drowsiness, blurred vision, dry mouth, stomach upset, or headache. Do not drive or perform activities which require concentration until you understand how Hydroxyzine affects you. Common S/E of Gabapentin include but are not limited to: dizziness, somnolence, ataxia, wt gain. Serious but rare side effects multiorgan sensitivity DRESS), respiratory depression. FDA indicated for RLS, partial seizures, post herpetic neuralgia Off label uses: anxiety d/o, withdrawal from alcohol or benzos, alcohol dependence. 06/24/2024 Post-traumatic stress disorder, chronic (ICD-10 - F43.12) Clonidine most common side effects include but are not limited to dry mouth, somnolence, dizziness, constipation, fatigue, headache. Serious but rare s/e include hypotension, syncope, orthostasis. Minimize s/e by administering at bedtime. Need to taper dose to avoid rebound hypertension. 09/08/2024 Insomnia due to other mental disorder (ICD-10 - F51.05) Per clt sleeping weel. 03/30/2024 Encounter for screening for COVID-19 (ICD-10 - [...] you are having concerning symptoms for COVID-19. 04/13/2024 Nicotine dependence, cigarettes, uncomplicated (ICD-10 - F17.210) 04/29/2024 Post-traumatic stress disorder, chronic (ICD-10 - F43.12) Clonidine most common side effects include but are not limited to dry mouth, somnolence, dizziness, constipation, fatigue, headache. Serious but rare s/e include hypotension, syncope, orthostasis. Minimize s/e by administering at bedtime. Need to taper dose to avoid rebound hypertension. 06/24/2024 Encounter for screening for COVID-19 (ICD-10 - [...] you are having concerning symptoms for COVID-19. 09/08/2024 Other prison (current) drug therapy (ICD-10 - Z79.899) 04/13/2024 Opioid abuse, uncomplicated (ICD-10 - F11.10) 04/29/2024 Encounter for screening for COVID-19 (ICD-10 - [...] you are having concerning symptoms for COVID-19. 09/08/2024 Encounter for screening for COVID-19 (ICD-10 - Z11.52) Covid screening is negative. 04/13/2024 Immunization not carried out because of patient decision for reasons of belief or group pressure (ICD-10 - Z28.1) declines Flu shot. Aware of risks 04/29/2024 Syphilis, unspecified (ICD-10 - A53.9) Lab work drawn as ordered, per protocol using aseptic technique. Client will be notified of all lab values within two weeks, Client agrees with plan, allowed to clarify questions about plan. 03/09/2024 Other 04/01/2024 Other 04/22/2024 Other Time spent in visit: minutes 04/28/2024 Other 07/22/2024 Other 09/23/2024 Other 03/30/2024 Other 04/13/2024 Other Lab work drawn as ordered, per protocol using aseptic technique. Client will be notified of all lab values within two weeks, Client agrees with plan, allowed to clarify questions about plan. 04/29/2024 Other 04/29/2024 Other 06/24/2024 Other 09/08/2024 Other Plan Of Treatment Pending Test Test Name Order Date HIV 1/2 ANTIGEN/ANTIBODY,FOURTH GENERATI ON W/RFL 10/07/2019 LIPID PANEL 10/07/2019 COMPREHENSIVE METABOLIC PANEL-[facility] 09/18 CBC (H/H, RBC, INDICES, WBC, PLT) 2019 HEMOGLOBIN A1c 10/07/2019 HEPATITIS B CORE AB TOTAL 10/07/2019 HEPATITIS B SURFACE ANTIGEN W/REFL CONFI RM 10/07/2019 HEPATITIS C AB W/REFL TO HCV RNA, QN, PC R 10/07/2019 TSH W/REFLEX TO FT4 10/07/2019 HEPATITIS A AB, TOTAL W/REFL IGM 020 CHLAMYDIA/N. GONORRHOEAE RNA, TMA 2019 SYPHILIS ANTIBODY CASCADING REFLEX 10/06 HEPATITIS B SURFACE AB IMMUNITY, QN 09/18 CBC 07/23/2023 CBC 09/08/2024 CHLAMYDIA / GC DNA W RFLX 07/23/2023 COMPREHENSIVE METABOLIC PANEL 07/23/2023 LIVER FIBROSIS PANEL 10/18/2019 LIVER FIBROSIS PANEL 07/23/2023 GLYCOHEMOGLOBIN PROFILE 09/08/2024 GLYCOHEMOGLOBIN PROFILE 07/23/2023 HCV VIRAL LOAD 07/23/2023 HCV VIRAL LOAD 10/18/2019 HEP C VIRAL RNA GENOTYPE 07/23/2023 HEP C VIRAL RNA GENOTYPE 01/05/2024 HEP C VIRAL RNA GENOTYPE 10/18/2019 HIV 1 AND 2 ANTIBODY SCREEN 07/23/2023 LIPID PROFILE 09/08/2024 LIPID PROFILE 07/23/2023 MEASLES PROFILE 07/23/2023 PT/INR 10/18/2019 PT/INR 07/23/2023 PT/INR 01/05/2024 TREPONEMAL AB 07/23/2023 TSH CASCADE 07/23/2023 TSH CASCADE 09/08/2024 URINALYSIS 07/23/2023 CR Foot LT Min 3 Views 02/16/2024 US Liver 04/13/2024 HEPATITIS A,B,C PROFILE 07/23/2023 QUANTIFERON(R)-TB GOLD PLUS, 1 TUBE 06/2023 SARS-CoV-2 RNA, QUAL RT-PCR 01/20/2020 COMPREHENSIVE METABOLIC PANEL 09/08/2024 Next Appt Details Provider Name:Kathy Rigoberto, 10/27/2024 10:30:00 AM, [address] [place] [address], [phone], Provider Name:Octaviano austin, 11/09/2024 10:30:00 AM, [address] [place] [address], [phone], Insurance Providers Payer Name Payer Address Payer Phone Subscriber Number Group Number Insured Name Patient Relationship to Insured Coverage Start Date Coverage End Date [place] Medicaid C3 [address] [place], [place] [id number] [phone] [id number] Mikael Ang Self - patient is the insured 5 [place] [facility] [address] [place] [address] [id number] Mikael Ang Self - patient is the insured 9 Medical (General) History Medical History History ICD Code hx heroin/coke use hx anxiety/depression Hep C + - Diagnosed at age 18 Surgical History Surgery Date(Month/Year) appendectomy 18 Hospitalization History Reason Date(Month/Year) [facility] ER, right sided facial pain, dc to h ome 02/09/19 [facility] ER, abscess, cellulitis, need of promise sm, folliculitis, dc to home 01/24/19 [facility] ER, left leg edema, dc to home 01/12
[2024-10-25 20:18] LABS: Appearance Urine Clear; Glucose Urine UA Negative (Negative); PH 6.0 (5.0-9.0); Specific Gravity - Urine 1.020 (1.005-1.025); UMIC TRIGGER UACC YES
[2024-10-25 20:22] VITALS: BP 110/53; PULSE 61; RESP 16; TEMP 36.5; O2SAT 91
[2024-10-25 23:19] VITALS: BP 110/53; PULSE 57; RESP 16; TEMP 36.4; O2SAT 93
--- NOTE | 2024-10-25 23:20 | PC.NURSE ---
this RN spoke amy/ [employer] program manager for this pt, updated supervisor waterworks that the pt is D/C and will be waiting in the waiting room for a ride back to the program, supervisor waterworks stated program worker will arrive within 10 minutes
[2024-10-25 23:21] VITALS: BP 110/53; PULSE 57; RESP 16; TEMP 36.4; O2SAT 93
== END 2024-10-25 23:22 | disposition home or self-care (01) ==
PROVIDERS: Physician Assistant Medical; Emergency Provider Emergency Medicine
DX: R31.9 Hematuria, unspecified (principal); R10.32 Left lower quadrant pain
CPT/HCPCS: 36415; 74176; 80053; 81001; 83735; 85025; 96372; 99284; J1885

== ENCOUNTER → 2024-10-25 20:40 | Outpatient (BNV) | payer MEDICAID, SELFPAY | PROVIDERS: Visit Provider Radiology Diagnostic Radiology | DX: Z03.89 Encounter for observation for other suspected diseases and conditions ruled out (principal) | CPT/HCPCS: 74176 ==

== ENCOUNTER 2025-01-04 12:56 | Outpatient (AMB) | payer MEDICAID, SELFPAY ==
--- NOTE | 2025-01-04 13:07 | MHC.OFFVIS ---
Intake Visit Reasons: Micro Hematuria Intake Note: New patient presents today for initial visit for microscopic hematuria Urology Medication:None Blood Thinner:None Antibiotic Allergies:None Allergies No Known Allergies Allergy (Verified 01/04/25 13:35) Medication List - Last Reconciled 01/04/25 by TAMMY Peoples ketorolac 10 mg PO Q6H PRN HPI Comments Details: Mikael is a 44-year-old male patient of . He presents to the office today as a new patient for microscopic hematuria in the setting of nicotine dependence. In discussion with the patient today reports having had a appointment with his PCP at which time urinalysis noted microscopic hematuria and recommendations were made for urology referral for further assessment evaluation. When asked he reports a longstanding history of nicotine dependence since the age of 15. He reports he has been smoking cigarettes intermittently over the last 30 years or so. He reports he currently smokes 4-5 cigarettes per day however there were years where he was smoking half a pack of cigarettes a day. In office urinalysis results reviewed with the patient today no microscopic hematuria noted. In review of patient's chart it appears patient has had a CT with the abdomen and pelvis without IV contrast 11/11 that noted no acute findings in the abdomen or pelvis. Specifically no evidence of renal obstruction, ureteral obstruction or bladder calculi. We did discussed at length potential causes of microscopic hematuria as well as further workup to include in office cystoscopy. He currently denies any bothersome urinary issues. He denies urinary urgency, urinary frequency, incontinence, nocturia, hematuria, dysuria, foul smelling urine, changes to urinary stream, flank pain, fever, and or chills. He is happy with his current voiding parameters. I discussed reasons for blood in the urine may include but are not limited to kidney stones, cancer in the urinary tract, BPH, kidney stone disease or inflammatory conditions of the urinary tract. I have discussed workup to include cystoscopy evaluation. All questions were answered. He otherwise offers no other issues or concerns at this time. COUNT INCLUDES THE [facility] Social History Alcohol intake: never Substance Use Type: Marijuana Review of Systems Const All systems reviewed & are unremarkable except as noted in HPI and below Physical Exam Const General: cooperative, healthy appearing, comfortable, no acute distress, well developed, alert and awake Orientation/consciousness: patient oriented x3 Limitations: no limitations HEENT Head: Yes normal to inspection, Yes normocephalic and Yes atraumatic Ears: hearing grossly normal bilaterally Eyes General: appearance normal, both eyes and all related structures Neck Neck: Yes normal visual inspection and Yes trachea midline Chest Chest palpation & inspection: normal inspection of the chest Resp Effort & Inspection: normal respiratory effort and able to speak in complete sentences Cardio Rate: regular rate GI Inspection: Yes normal to inspection General: Yes no CVA tenderness Back/Spine/Pelvis Back: no CVA tenderness Skin General skin exam: no rashes or lesions noted Neuro General: patient oriented x3 Extrem General: Yes normal to inspection Psych Appearance: grossly normal and well kempt Mental Status: mental status grossly normal Speech and movement: Normal speech and movement present and Clear speech present Affect: normal affect Attitude: cooperative Thought process: Normal thought process present Thought content: Normal thought content present Insight: Fair insight present (Psych) Judgement: Fair judgement present (Psych) Assessment & Plan Assessment & Plan (1) Microscopic hematuria: Code(s): R31.29 - Other microscopic hematuria Category: Medical (2) Nicotine dependence: Code(s): F17.200 - Nicotine dependence, unspecified, uncomplicated Category: Medical Plan In office urinalysis results reviewed with the patient today; as noted above; will send for urine cytology. Most recent CT results reviewed with the patient today; as noted above. He currently denies any bothersome urinary issues or concerns. He reports be happy with current voiding parameters. We did discussed potential causes of microscopic hematuria. We did discuss persistent microscopic hematuria verses intermittent microscopic hematuria verses gross/visible hematuria. All questions were answered. We did discussed further workup to include in office cystoscopy; information was provided; he would like to think about this Follow-up in 6 months with urinalysis; or sooner with any issues, concerns, and or questions Orders: Orders Urine Cytology Today F17.200 - Nicotine dependence, unspecified, uncomplicated, R31.29 - Other microscopic hematuria Patient Instructions: The patient had an opportunity to ask questions regarding the treatment plan. All questions were answered. Physical exam, labs, and imaging were discussed and reviewed in detail. As well as risks, benefits, and discussion of treatment choices. No major barriers to understanding were identified. The patient expressed understanding and agreement with the above treatment plan. The patient was made aware they should contact our office by phone for worsening of their current condition, the appearance of new symptoms, or with any questions or concerns. Compliance is encouraged with any medications and follow up testing that is ordered. It is a privilege to be allowed the opportunity to participate in? your urological care.? Again, if you have any questions or concerns If you have any questions or concerns please do not hesitate to contact me. The office is [phone]. This note is constructed using voice recognition software. While every effort has been made to ensure accuracy enrollment management director errors may have been included. Yours sincerely, JOANNE Peoples Coding Level of Care Code New Pt Level 3 (44667) Diagnoses Microscopic hematuria R31.29 Nicotine dependence F17.200
== END 2025-01-04 13:28 | disposition home or self-care (01) ==
LOC: HO.HUSH 12:56
PROVIDERS: PCP Nurse Practitioner; Visit Provider Nurse Practitioner Family
DX: R31.29 Other microscopic hematuria (principal); F17.200 Nicotine dependence, unspecified, uncomplicated
CPT/HCPCS: 99203

== ENCOUNTER 2025-01-04 12:56 | Outpatient (REF) | payer MEDICAID, SELFPAY ==
--- OUTSIDE RECORDS SUMMARY | 2024-11-08 05:35 | XMS_ITS ---
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 Role Phone Octaviano Seay Primary Care Provider REASON FOR VISIT FYI only Social History Sex Assigned At : Social History Observation Description Sex Assigned At Male Encounters Encounter Location Date Provider Diagnosis [facility] [address] [place] [phone] 11/08/2024 Octaviano Seay Plan Of Treatment Next Appt Details Provider Name:Kathy Franklin, 02/02/2025 10:00:00 AM, [address] [place] [address], [phone], Provider Name:Octaviano austin, 03/31/2025 10:00:00 AM, [address] [place] [address], [phone], Progress Notes * Mikael ANG MDOB: 0 (44 yo M)Acc No.[id number]:11/08/2024 Patient: Alessia Mikael PAREDES :1980 A ge:43 Y S ex:Male Address:[address] [place] [address] [place], [address] * * Date:
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
--- OUTSIDE RECORDS SUMMARY | 2025-01-06 02:44 | XMS_ITS | Patient Health Record ---
Author Organization [facility] Address [address] [place] [address] Care Team Providers Care Bus Cleaner Name Role Phone Octaviano Seay Primary Care Provider Kathy Franklin Unavailable [phone] [facility], Nursing Unavailable [phone] Mira Rizzo Unavailable [phone] Migration, Provider Unavailable Unavailable Allergies No Known Allergies Results Component Value Reference Range Notes RAPID PLASMA REAGIN WITH REF CHRISTIANO TO TITER Reviewed date:04/14/2024 07:14:31 PM Interpretation:Positive Performing Lab: Notes/Report: RPR Reactive Nonreactive RAPID PLASMA REAGIN WITH REF CHRISTIANO TO TITER Reviewed date:04/30/2024 05:26:14 PM Interpretation:onnreactive Performing Lab: Notes/Report: RPR Nonreactive Nonreactive COMPLETE BLOOD COUNT Reviewed date:01/09/2024 11:37:29 AM [...] U/L Alanine Aminotransferase (ALT) 7 9-46 U/L Mlegs-1-Bhmuejbsdstei 346 106-279 mg/dL Haptoglobin 158 43-212 mg/dL Apolipoprotein A1 156 94-176 mg/dL Reference ID [id number] Footnote SEE NOTE The reliability of results is dependent on compliance with the preanalytical and analytical conditions recommended by [employer]. The tests have to be deferred for: [...] The performance characteristics have been determined by [facility]. It has not been cleared or approved by the U.S. Food and Drug Administration. Performance characteristics refer to the analytical performance of the test. [employer], the associated logo, [employer] and all associated [employer] rodriguez are the registered trademarks of [employer]. All third republican rodriguez - (R) and (TM) - are the property of their respective owners. (C) [id number] [employer]. All rights reserved. Test Performed at: [employer] [facility] [address] [place] [address] Harshil Rios MD, PhD, LIAT URINALYSIS WITH REFLEX MICRO SCOPIC Reviewed date:04/14/2024 01:03:31 AM Interpretation:Abnormal Performing Lab: Notes/Report: Specific Warren Urine 1.023 1.003-1.030 pH, Urine 6.0 5.0-8.0 [...] Antibody (TP-PA) Reactive Nonreactive Test performed at [facility], [address], [place] [address] Nita Cartagena MD, PhD - [employer] Process Server Developer [facility] Reviewed date:10/28/2024 12:20:59 PM Interpretation:gluc 144 NF, all other labs wnl Performing Lab: Notes/Report: Sodium 136 133-145 mmol/L Potassium 4.0 3.5-5.5 mmol/L Chloride 103 96-110 mmol/L CO2 30 21-32 mmol/L Anion Gap 3 3-11 Glucose 144 70-100 mg/dL BUN 13 5-25 mg/dL Creatinine 1.00 0.70-1.30 mg/dL eGFR 95 >=60 mL/min/1.73m2 Calculati on based on the Chronic Kidney Disease Epidemiology Collaboration (CKD-EPI) equation refit without adjustment for race. BUN/Creatinine Ratio 13.0 Calcium 8.9 8.5-10.5 mg/dL AST (SGOT) 29 10-42 unit/L ALT (SGPT) 31 10-60 unit/L Alkaline Phosphatase 85 42-121 unit/L Total Protein 7.4 6.0-8.0 g/dL Albumin 3.7 3.2-5.0 g/dL Total Bilirubin 0.5 0.0-1.4 mg/dL COMPLETE BLOOD COUNT Reviewed date:10/28/2024 12:21:03 PM Interpretation:H/h minimally low Performing Lab: Notes/Report: WBC 6.5 4.8-10.8 K/mcL RBC 4.50 4.50-5.50 M/mcL Hemoglobin 13.1 13.5-17.5 g/dL Hematocrit 39.5 42.0-54.0 % MCV 87.0 79.0-98.0 FL MCH 28.9 27.0-32.0 pcg MCHC 33.2 32.0-37.0 g/dL RDW 12.6 11.0-15.0 % Platelets 203 130-400 K/mcL MPV 9.5 7.0-11.0 FL NRBC 0.0 <1.0 % NRBC Absolute 0.00 <0.10 K/mcL LIPID PANEL WITH REFLEX TO D IRECT LDL Reviewed date:10/28/2024 12:20:54 PM Interpretation:Normal Performing Lab: Notes/Report: Cholesterol 176 0-200 mg/dL Triglycerides 106 0-150 mg/dL HDL 55 >=40 mg/dL LDL Calculated 100 0-100 mg/dL Estimated LDL Calculated using equation: Total cholesterol - HDL cholesterol - (Triglycerides/5) VLDL Cholesterol Jimi 21.2 Non HDL Chol. (LDL+VLDL) 121 <145 mg/dL Chol/HDL Ratio 3.2 0.0-4.4 THYROID STIMULATING HORMONE WITH REFLEX TO FREE T4 AND FREE T3 Reviewed date:10/28/2024 12:20:49 PM Interpretation:Normal Performing Lab: Notes/Report: TSH 1.41 0.40-4.00 mcIU/mL HEMOGLOBIN A1C Reviewed date:10/28/2024 12:20:44 PM Interpretation:6.2 Performing Lab: Notes/Report: Hemoglobin A1C 6.2 <6.5 % Mean Bld Glu Estim. 131 XR CHEST 2 VIEWS Reviewed date:12/10/2024 11:12:05 AM Interpretation:Normal Performing Lab: Notes/Report: See Note [facility], a member of [employer] HISTORY: The patient is a 43-year-old male with dyspnea. FINDINGS: PA and lateral radiographs of the chest demonstrate that the endotracheal tube and left internal jugular central venous catheter have been removed since the prior study performed 03/11/2020. The bony structures are of normal appearance. The cardiac silhouette is within normal limits. The aortic knob is calcified. The lungs and costophrenic angles are clear. IMPRESSION: No acute pulmonary disease. Code 79158 -------- FINAL REPORT -------- Dictated By: Manuel Skelton Dictated Date: 12/10/2024 09:26 ET Assigned Physician: Manuel Skelton Reviewed and Electronically Signed By: Manuel Skelton Signed Date: 12/10/2024 09:26 ET Workstation ID: [id number] Transcribed By: Self Edit Transcribed Date: 12/10/2024 09:26 ET VAS US DUPLEX LOWER EXT VENO US BILAT Reviewed date:12/09/2024 04:02:18 PM Interpretation:Negative Performing Lab: Notes/Report: See Note [facility], a member of [employer] PROCEDURE: VAS US DUPLEX LOWER EXT VENOUS BILAT INDICATION: edema TECHNIQUE: 2-D and color Doppler imaging of the lower extremity venous vasculature with compression and augmentation maneuvers. COMPARISON: No priors available. FINDINGS: RIGHT: There is normal flow, compression, and augmentation from the common femoral through the popliteal vein. Visualized calf veins unremarkable. LEFT: There is normal flow, compression, and augmentation from the common femoral through the popliteal vein. Visualized calf veins unremarkable. IMPRESSION: NO RIGHT OR LEFT LOWER EXTREMITY DEEP VENOUS THROMBOSIS. -------- FINAL REPORT -------- Dictated By: Shimon Montelongo Dictated Date: 12/09/2024 15:31 ET Assigned Physician: Shimon Montelongo Reviewed and Electronically Signed By: Shimon Montelongo Signed Date: 12/09/2024 15:31 ET Workstation ID: [id number] Transcribed By: Self Edit Transcribed Date: 12/09/2024 15:31 ET US ABDOMEN LIMITED (Not yet reviewed by provider) Interpretation:chronic hepatocellular disease Performing Lab: Notes/Report: See Note [facility], a member of [facility] PROCEDURE: Right upper quadrant ultrasound. HISTORY: HEP C. COMPARISON: Abdominal radiograph 03/10/2020. TECHNIQUE: Grayscale, color Doppler, and spectral Doppler ultrasound evaluation of the right upper quadrant of the abdomen. FINDINGS: LIVER: Echogenic coarsened parenchyma. No focal lesion. Normal flow in the main portal vein. BILIARY: Normal gallbladder. Negative sonographic Sorto sign. Dilated common duct, measuring 1.1 cm. No intrahepatic ductal dilatation or visible ductal filling defect. PANCREAS: Visualized portions are normal. RIGHT KIDNEY: Normal size and echotexture. No hydronephrosis or focal lesion. SPLEEN: Normal size. No focal lesion. IMPRESSION: Echogenic coarsened liver parenchyma consistent with chronic hepatocellular disease. No sonographically evident focal liver lesion. Dilated common duct but no intrahepatic ductal dilatation and no visible ductal filling defect. -------- FINAL REPORT -------- Dictated By: Daniel Canela Dictated Date: 01/05/2025 09:18 ET Assigned Physician: Daniel Canela Reviewed and Electronically Signed By: Daniel Canela Signed Date: 01/05/2025 09:19 ET Workstation ID: [id number] Transcribed By: Self Edit Transcribed Date: 01/05/2025 09:18 ET Reason For Referral Reason [facility] surger y, [address] [place] [address] P: [phone] F: [phone] evaluate right inguinal hernia Diagnosis 1 Unilateral inguinal hernia, with obstruction, without gangrene, not specified as recurrent (K40.30) Referral Organization [facility] Referring Provider First Name Octaviano Referring Provider Last Name Geena Referring Provider Speciality Nurse Sam sy Referred Provider Nikolay Lucero l Referred Provider Specialty General Surg marco General Notes Judy Marrufo 03:38:02 PM > Faxed to [facility] surgeryYaron [place] 09/08/2024 10:19:10 AM > scheduled 10/12/24 @10:15am, Alison Tang 10/25/2024 12:20:01 PM > pt no showed appt, soraya from [facility] called will follow up to r/s Referral Priority Routine Referral Appointment Date 12/07/2024 Reason [facility], [address] , [facility] [address], [place] [address] P: [phone] F: [phone] Dispense #1 pair, 30-40 mm Hg, calf high bilateral calf wraps Diagnosis 1 Peripheral vascular disease, unspecified (I73.9) Referral Organization [facility] Referring Provider First Name Octaviano Referring Provider Last Name Geena Referring Provider Speciality Nurse Sam sy Referred Provider undefined Referred Provider Specialty Miscellaneou s General Notes Judy Marrufo 03:34:38 PM > [facility] 12/15/2024 11:54:42 AM >needed updated referral due to time frame Referral Priority Routine Medications Medication SIG (Take, Route, Frequency, Duration) Notes Start Date End Date Status traZODone HCl 50 MG take 1-2 tablets orally at bedtime as needed for insomnia for 30 days Active Ibuprofen 600 MG 1 tab(s) orally 3 times a day Not-Taking Methadone HCl 10 MG/ML 135 mg orally once a day [facility] Active Nicorette 4 MG 1 GUM by transmucosa l administration every 2 hours Not-Taking Sertraline HCl 50 MG 1 tab(s) orally onc e a day for 30 days Active Diclofenac Sodium 1 % as directed Externally twice a day for 28 days As needed 12/10/2024 Not-Taking Hemorrhoidal Hygiene 50 % as directed Externally twice a day for 30 days As needed 12/09/2024 Not-Taking Diclofenac Sodium 3 % 1 application Externally Twice a day for 30 days 12/09/2024 Not-Taking Polyethylene Glycol 3350 17 GM/SCOOP as directed Orally daily for 28 days 12/09/2024 Not-Taking OLANZapine 5 MG 1 tab(s) orally once a day for 30 days Not-Taking Senna-Tabs 8.6 MG 2 tablets at bedtime as needed Orally Once a day for 90 days 12/09/2024 Active Gabapentin 600 MG 1 tab(s) orally 3 times a day for 30 days 06/24/2024 Active cloNIDine HCl 0.1 MG 1 tab(s) orally 3 times a day as needed for anxiety for 30 days Active Mounjaro 2.5 MG/0.5ML as directed Subcutaneous once a week for 28 days 12/30/2024 Active hydrOXYzine HCl 25 MG 1-2 tabs orally 3 times a day as needed for anxiety for 30 days Active Clotrimazole 1 % 1 kiesha applied topically 2 times a day Not-Taking Immunizations Vaccine Route Administration Date Status Comme nts Hepatitis A IM Intramuscular 10/16/2023 Administered [facility]: [id number] Social History Tobacco Use: Social History Observation [...] shyanne t Patient counseled on the ofe reeses of tobacco use and advised to quit: 03/30/2024 Problems Problem Type SNOMED Code ICD Code Onset Dates Problem Status W/U Status Risk Notes Problem Viral hepatitis type C (42674887) Unspecified viral hepatitis C without hepatic coma (B19.20) Active confirmed Problem Morbid obesity (disorder) (358386624) Morbid (severe) obesity due to excess calories (E66.01) Active confirmed Problem Opioid abuse (6941504) Opioid abuse, uncomplicated (F11.10) Active confirmed Problem Cocaine dependence (36793169) Cocaine dependence, uncomplicated (F14.20) Active confirmed Problem Tobacco user (913959945) Nicotine dependence, cigarettes, uncomplicated (F17.210) Active confirmed Problem Bipolar affective disorder, currently depressed, mild (890179198) Bipolar disorder, current episode depressed, mild (F31.31) Active confirmed Problem Bipolar disorder, current episode depressed, severe, with psychotic features (F31.5) Active confirmed Problem Bipolar disorder (29718910) Bipolar disorder, unspecified (F31.9) Active confirmed Problem Moderate recurrent major depression (81722964) Major depressive disorder, recurrent, moderate (F33.1) Active confirmed Problem Affective psychosis (591771690) Unspecified mood [affective] disorder (F39) Active confirmed Problem Anxiety disorder (355955632) Anxiety disorder, unspecified (F41.9) Active confirmed Problem Posttraumatic stress disorder (60939238) Post-traumatic stress disorder, chronic (F43.12) Active confirmed Problem Insomnia disorder related to another mental disorder (36505397) Insomnia due to other mental disorder (F51.05) Active confirmed Problem Peripheral vascular disease (512682118) Peripheral vascular disease, unspecified (I73.9) Active confirmed Problem Localized, primary osteoarthritis of the ankle and/or foot (699801949) Primary osteoarthritis, left ankle and foot (M19.072) Active confirmed Problem Body mass index 40+ - severely obese (650438959) Body mass index [BMI]40.0-44.9, adult (Z68.41) Active confirmed Problem Sheltered homelessness (302429984833465) Sheltered homelessness (Z59.01) Active confirmed Problem Obesity (697609759) Obesity, unspecified (E66.9) Inactive confirmed Problem Cocaine abuse (98918219) Cocaine abuse, uncomplicated (F14.10) Inactive confirmed Problem Mental disorder (84059523) Mental disorder, not otherwise specified (F99) Inactive confirmed Problem Callosity (535049938) Corns and callosities (L84) Inactive confirmed Problem Homelessness (83433088) Homelessness (Z59.0) Inactive confirmed Problem Body mass index 30.00 to 34.99 (209275389214924) Body mass index (BMI) 33.0-33.9, adult (Z68.33) Inactive confirmed Vital Signs Temperature 97 degrees Fahrenheit 12/29/2024 Blood pressure diastolic 63 12/29/2024 Oximetry 93 12/29/2024 Height 69 in 12/29/2024 Blood pressure systolic 94 12/29/2024 Weight 298.4 lbs 12/29/2024 BMI 44.06 kg/m2 12/29/2024 Procedures Procedure Date Ordered Date Performed Result Body Sit e ECHO EXAM OF HEART 12/09/2024 03/14/25 Encounters Encounter Location Date Provider Diagnosis [address] [address] 10/30/2024 Provider Migration Bipolar disorder, unspecified F31.9 ; Opioid abuse, uncomplicated F11.10 ; Anxiety disorder, unspecified F41.9 and Insomnia due to other mental disorder F51.[address] [address] 01/08/2024 Nursing [facility] Encounter for screening, unspecified Z13.[address] [address] 02/16/2024 Eddieliza Casionan Pain in left foot M79.[address] [address] 03/30/2024 Kathy Franklin Opioid abuse, uncomplicated F11.10 ; Major depressive disorder, recurrent, moderate F33.1 ; Insomnia due to other mental disorder F51.05 ; Nicotine dependence, cigarettes, uncomplicated F17.210 ; Anxiety disorder, unspecified F41.9 ; Post-traumatic stress disorder, chronic F43.12 and Encounter for screening for COVID-19 Z11.[address] [address] 04/13/2024 Eddieliza Casionan Encounter for screening for [...] reasons of belief or group pressure Z28.[address] 04/29/2024 Kathy Franklin Major depressive disorder, recurrent, moderate F33.1 ; Opioid abuse, uncomplicated F11.10 ; Insomnia due to other mental disorder F51.05 ; Nicotine dependence, cigarettes, uncomplicated F17.210 ; Anxiety disorder, unspecified F41.9 ; Post-traumatic stress disorder, chronic F43.12 ; Encounter for screening for COVID-19 Z11.52 and Syphilis, unspecified A53.[address] [address] 04/29/2024 Eddiricky Seay Encounter for screening for COVID-19 Z11.52 ; Unilateral inguinal hernia, with obstruction, without gangrene, not specified as recurrent K40.30 ; Nicotine dependence, cigarettes, uncomplicated F17.210 and Personal history of other infectious and parasitic diseases Z86.[address] [address] 05/20/2024 Octaviano Seay Peripheral vascular disease, unspecified I73.[address] 06/24/2024 Kathy Franklin Major depressive disorder, recurrent, moderate F33.1 ; Opioid abuse, uncomplicated F11.10 ; Insomnia due to other mental disorder F51.05 ; Nicotine dependence, cigarettes, uncomplicated F17.210 ; Anxiety disorder, unspecified F41.9 ; Post-traumatic stress disorder, chronic F43.12 and Encounter for screening for COVID-[address] [address] 09/08/2024 Kathy Franklin Unspecified mood [affective] disorder F39 ; Opioid abuse, uncomplicated F11.10 ; Anxiety disorder, unspecified F41.9 ; Post-traumatic stress disorder, chronic F43.12 ; Insomnia due to other mental disorder F51.05 ; Other terminologist (current) drug therapy Z79.899 and Encounter for screening for COVID-[address] [place] [address] 10/27/2024 Kathy Franklin Bipolar disorder, unspecified F31.9 ; Opioid abuse, uncomplicated F11.10 ; Cocaine dependence, uncomplicated F14.20 ; Anxiety disorder, unspecified F41.9 ; Post-traumatic stress disorder, chronic F43.12 ; Insomnia due to other mental disorder F51.05 ; Obesity, unspecified E66.9 and Encounter for screening for COVID-[address] [address] 12/09/2024 Eddieliza Casionan Dyspnea, unspecified R06.00 ; Localized edema R60.0 ; Abnormal weight gain R63.5 ; Unspecified viral hepatitis C without hepatic coma B19.20 ; Encounter for screening for COVID-19 Z11.52 ; Sheltered homelessness Z59.01 ; Nicotine dependence, cigarettes, uncomplicated F17.210 ; Primary osteoarthritis, left ankle and foot M19.072 ; Other hemorrhoids K64.8 and Drug induced constipation K59.[address] [address] 12/29/2024 Kathy Franklin Bipolar disorder, current episode depressed, severe, with psychotic features F31.5 ; Opioid abuse, uncomplicated F11.10 ; Cocaine dependence, uncomplicated F14.20 ; Anxiety disorder, unspecified F41.9 ; Post-traumatic stress disorder, chronic F43.12 ; Insomnia due to other mental disorder F51.05 and Obesity, unspecified E66.[address] [address] 12/29/2024 Eddieliza Casionan Encounter for screening for COVID-19 Z11.52 ; Prediabetes R73.03 ; Encounter for screening for malignant neoplasm of colon Z12.11 ; Body mass index [BMI]40.0-44.9, adult Z68.41 ; Localized edema R60.0 ; Nicotine dependence, cigarettes, uncomplicated F17.210 ; Morbid (severe) obesity due to excess calories E66.01 and Immunization not carried out because of patient refusal Z28.21 [facility] [address] [place] [phone] 11/08/2024 Eddieliza Casionan [address] [address] 01/14/2024 Eddieliza Casionan [address] [address] 01/16/2024 Eddieliza Casionan [facility] [address] [place] [phone] 02/04/2024 Eddieliza Casionan [facility] [address] [place] [id number] 02/09/2024 Eddieliza Casionan Mental disorder, not otherwise specified F99 [address] [address] 02/16/2024 Eddieliza Casionan Pain in left foot M79.672 [facility] [address] [place] [id number] 03/19/2024 Eddieliza Casionan [address] [address] 03/26/2024 Eddieliza Casionan Mental disorder, not otherwise specified F99 [address] [address] 04/16/2024 Eddieliza Casionan Syphilis, unspecified A53.[address] [address] 06/22/2024 Kathy Franklin [address] [address] 09/08/2024 Eddieliza Casionan [address] [address] 10/25/2024 Eddieliza Casionan [address] [address] 10/26/2024 Kathy Franklin [address] [address] 11/01/2024 Eddieliza Casionan [facility] [address] [place] [address] [phone] 12/01/2024 Eddieliza Casionan Localized edema R60.[address] [address] 12/10/2024 Eddieliza Casionan [address] [address] 12/10/2024 Kathy Franklin [address] [address] 12/30/2024 Octaviano Seay Assessments Encounter Date Diagnosis (ICD Code) Assessment Notes Treatment Notes Treatment Clinical Notes Section Notes 01/08/2024 Encounter for screening, unspecified (ICD-10 - Z13.9) Lab work drawn as ordered, per protocol using aseptic technique. Client will be notified of all lab values within two weeks, Client agrees with plan, allowed to clarify questions about plan. 10/30/2024 Bipolar disorder, unspecified (ICD-10 - F31.9) 02/16/2024 Pain in left foot (ICD-10 - [...] to proceed with prescribed treatment. 1. Mass RECYCLING TECH reviewed: see Exam 2. Medications: At this time declines SSRI/SNRI, mirtazapine or Wellbutrin. PLan to discuss further next visit. 3. Psychotherapy: can see therapist as needed. 4. Labs/Procedures:see ing PCP at [facility]. 5. Exercise/Nutrition: sleep, regular exercise and nutrition all have [...] to proceed with prescribed treatment. 1. Mass RECYCLING TECH reviewed: see Exam 2. Medications: At this time declines SSRI/SNRI, mirtazapine or Wellbutrin. PLan to discuss further next visit. 3. Psychotherapy: can see therapist as needed. 4. Labs/Procedures:see ing PCP at [facility] who will review RPR with clt. 5. Exercise/Nutrition: sleep, regular exercise and nutrition all have [...] health other than the swelling. informed Emiliana [employer] of pt legs swollen - she instructed [...] to proceed with prescribed treatment. 1. Mass RECYCLING TECH reviewed: see Exam 2. Medications: At this time declines SSRI/SNRI, mirtazapine or Wellbutrin. PLan to discuss further next visit. 3. Psychotherapy: can see therapist as needed. 4. Labs/Procedures:see ing PCP at [facility] who will review RPR with clt. 5. Exercise/Nutrition: sleep, regular exercise and nutrition all have [...] to proceed with prescribed treatment. 1. Mass RECYCLING TECH reviewed: see Exam 2. Medications: now on Olanzapine, will require metaboilic monitoring. Will get labs at upcoming PCP visit. 3. Psychotherapy: has special education case manager at [facility] site. 4. Labs/Procedures: metabolic monitoring labs ordered for next visit. 5. Exercise/Nutrition: sleep, regular exercise and nutrition all have [...] gain and metabolic syndrome, risk of EPS, sedation/dizziness, elevated prolactin, anticholinergic s/e, uncommon risk of [...] when combines with NSAIDs such as ibuprofen. 10/27/2024 Bipolar disorder, unspecified (ICD-10 - F31.9) Reviewed hx of psychiatric illness, treatment received and medication trials with client. Discussed current medications as to indications, actions and side effects. Reviewed risks benefits of treatment versus non treatment. Medication education provided. Patient given opportunity to ask questions. Patient gives informed consent to proceed with prescribed treatment. 1. Mass RECYCLING TECH reviewed: see Exam 2. Medications: now on Olanzapine, will require metaboilic monitoring. Will get labs today. Appt with PCP next week, clt aware. 3. Psychotherapy: has special education case manager at [facility] site. 4. Labs/Procedures: metabolic monitoring labs today. 5. Exercise/Nutrition: sleep, regular exercise and nutrition all have [...] gain and metabolic syndrome, risk of EPS, sedation/dizziness, elevated prolactin, anticholinergic s/e, uncommon risk of [...] when combines with NSAIDs such as ibuprofen. 12/09/2024 Dyspnea, unspecified (ICD-10 - R06.00) We will send him for echo and X-ray. To check for heart failure. We will consider PFT if echo and X-ray are ok EKG today shows sinus dyana at 58 12/09/2024 Localized edema (ICD-10 - R60.0) His US of bilateral legs today is negative for DVT. Our staff will schedule him to be measured for leg compression wraps with 20-30 mmHg at [facility], and they will be calling the [facility] to ask for his transport We will send him for liver US. Albumin normal 12/29/2024 Bipolar disorder, current episode depressed, severe, with psychotic features (ICD-10 - F31.5) Reviewed hx of psychiatric illness, treatment received and medication trials with client. Discussed current medications as to indications, actions and side effects. Reviewed risks benefits of treatment versus non treatment. Medication education provided. Patient given opportunity to ask questions. Patient gives informed consent to proceed with prescribed treatment. 1. Mass RECYCLING TECH reviewed: see Exam 2. Medications: Agreeable to restart Olanzapine, will requireregular metaboilic monitoring. 3. Psychotherapy: has special education case manager at [facility] site. 4. Labs/Procedures: see labs above, now pre-diabetic. 5. Exercise/Nutrition: sleep, regular exercise and nutrition all have a direct impact on our health and well-being. Keeping them in balance is especially important when we face stressful times in our lives. Eat balanced meals, get 6-8 hours of sleep a night, daily walking as able. 6. Understands plan and verbalizes agreement, allowed time for clarifying questions. S/S of EPS reviewed with client and client consents to continue antipsychotic medication. Extrapyramidal symptoms (EPS) include akathisia, parkinsonism, and dystonia. While all antipsychotics can cause EPS, they tend to be more common in first-generation antipsychotics (FGAs) than second-generation antipsychotics. 1.Akathisia : Akathisia is the most common form of EPS. It usually presents as motor restlessness with a compelling urge to move or an inability to sit still. 2.Parkinsonism: Symptoms of secondary parkinsonism include masked facies, cogwheel rigidity, tremor, and bradykinesia. 3.Dystonia: Dystonia is an involuntary contraction of major muscle groups that is highly disturbing to the patient. Some types of dystonia, for example laryngospasm, may be life threatening. Antipsychotic-induc ed dystonia is usually rapid in onset and is characterized by torticollis, retrocollis, oculogyric crisis, and opisthotonos. Risk factors for dystonia include young age, male sex, use of cocaine, and a history of acute dystonic reaction. 4. Tardive dyskinesia : Tardive dyskinesia (TD) is a syndrome consisting of characteristic involuntary movements occurring most often after chronic treatment with antipsychotic medications or another dopamine receptor blocking agent. TD syndromes are more common after sustained exposure to antipsychotic medications; however, they may appear as early as one to six months after initiation of these agents. TD may initially worsen or reappear after lowering or discontinuing medication. S/E of Antipsychotic Medication Olanzapine reviewed with client and may include but are not limited to: weight gain and metabolic syndrome, risk of EPS, sedation/dizziness, elevated prolactin, anticholinergic s/e, uncommon risk of [...] when combines with NSAIDs such as ibuprofen. 12/29/2024 Prediabetes (ICD-10 - R73.03) A1C 6.2 Will start GLP-1 agonist 12/29/2024 Encounter for screening for COVID-19 (ICD-10 - [...] you are having concerning symptoms for COVID-19. 02/09/2024 Mental disorder, not otherwise specified (ICD-10 - F99) 02/16/2024 Pain in left foot (ICD-10 - M79.672) 03/26/2024 Mental disorder, not otherwise specified (ICD-10 - F99) 04/16/2024 Syphilis, unspecified (ICD-10 - A53.9) 12/01/2024 Localized edema (ICD-10 - R60.0) 10/30/2024 Opioid abuse, uncomplicated (ICD-10 - F11.10) 03/30/2024 Insomnia due to other mental disorder [...] (ICD-10 - F11.10) Doing well in recovery. 10/27/2024 Opioid abuse, uncomplicated (ICD-10 - F11.10) Doing well in recovery. 12/09/2024 Abnormal weight gain (ICD-10 - R63.5) We will work him our for heart failure in the setting of having history of cocaine use 12/29/2024 Opioid abuse, uncomplicated (ICD-10 - F11.10) Doing well in recovery. 12/29/2024 Encounter for screening for malignant neoplasm of colon (ICD-10 - Z12.11) Insure FIT testing agreed upon to screen for occult blood from colorectal disease. Instructed in use. Patient collection kit labeled and given to patient; questions regarding how to collect samples answered. Reminded to place date on each sample and mail back the card with completed requisition. 03/30/2024 Nicotine dependence, cigarettes, uncomplicated (ICD-10 - [...] (ICD-10 - F41.9) Common side effects of Hydroxyzine/Vistari l include but are not limited to: dizziness, [...] withdrawal from alcohol or benzos, alcohol dependence. 10/27/2024 Cocaine dependence, uncomplicated (ICD-10 - F14.20) No recent use. 12/09/2024 Unspecified viral hepatitis C without hepatic coma (ICD-10 - B19.20) We will send for liver US 12/29/2024 Cocaine dependence, uncomplicated (ICD-10 - F14.20) No recent use. 12/29/2024 Body mass index [BMI]40.0-44.9, adult (ICD-10 - Z68.41) Engaged discussion on maintaining healthy lifestyle: healthy diet low on fats and simple carbohydrates, and regular physical exercise of at least 30 minutes daily 10/30/2024 Anxiety disorder, unspecified (ICD-10 - F41.9) 03/30/2024 Anxiety disorder, unspecified (ICD-10 - F41.9) Common side effects of Hydroxyzine/Vistari l include but are not limited to: dizziness, [...] (ICD-10 - F41.9) Common side effects of Hydroxyzine/Vistari l include but are not limited to: dizziness, [...] Can make appt with SOL Rizzo at [facility] when ready. 10/27/2024 Anxiety disorder, unspecified (ICD-10 - F41.9) Common side effects of Hydroxyzine/Vistari l include but are not limited to: dizziness, [...] withdrawal from alcohol or benzos, alcohol dependence. 12/09/2024 Encounter for screening for COVID-19 (ICD-10 - [...] you are having concerning symptoms for COVID-19. 12/29/2024 Anxiety disorder, unspecified (ICD-10 - F41.9) Common side effects of Hydroxyzine/Vistari l include but are not limited to: dizziness, [...] withdrawal from alcohol or benzos, alcohol dependence. 12/29/2024 Localized edema (ICD-10 - R60.0) He is wearing compression stockings recent US negative for DVT His albumin is normal He has history of HCV. He will go for liver US He is scheduled for echo 03/30/2024 Post-traumatic stress disorder, chronic (ICD-10 - [...] (ICD-10 - F41.9) Common side effects of Hydroxyzine/Vistari l include but are not limited to: dizziness, [...] (ICD-10 - F51.05) Per clt sleeping weel. 10/27/2024 Post-traumatic stress disorder, chronic (ICD-10 - F43.12) Can make appt with SOL Rizzo at [facility] when ready. 12/09/2024 Sheltered homelessness (ICD-10 - Z59.01) Recovering at [facility] 12/29/2024 Post-traumatic stress disorder, chronic (ICD-10 - F43.12) Helping with impulsivity and anger control. Clonidine most common side effects include but are not limited to dry mouth, somnolence, dizziness, constipation, fatigue, headache. Serious but rare s/e include hypotension, syncope, orthostasis. Minimize s/e by administering at bedtime. Need to taper dose to avoid rebound hypertension. 12/29/2024 Nicotine dependence, cigarettes, uncomplicated (ICD-10 - F17.210) Reports trying to cut down 10/30/2024 Insomnia due to other mental disorder (ICD-10 - F51.05) 03/30/2024 Encounter for screening for COVID-19 (ICD-10 [...] having concerning symptoms for COVID-19. 09/08/2024 Other intermediate (current) drug therapy (ICD-10 - Z79.899) 10/27/2024 Insomnia due to other mental disorder (ICD-10 - F51.05) Per clt sleeping well, no nightmares. 12/09/2024 Nicotine dependence, cigarettes, uncomplicated (ICD-10 - F17.210) Encouraged Abstinence 12/29/2024 Insomnia due to other mental disorder (ICD-10 - F51.05) Per clt sleeping well, no nightmares. Common Side Effects of Trazodone include but are not limited to drowsiness, dry mouth, dizziness or lightheadedness, orthostatic hypotension, headache, blurred vision, nausea and vomiting. Serious but rare s/e effects include but are not limited to sustained erection > 6 hours, advised if this happens to seek immediate medical attention. 12/29/2024 Morbid (severe) obesity due to excess calories (ICD-10 - E66.01) Agrees to trial GLP-1. Side effects reviewed: nausea, diarrhea, vomiting, abd pain and decreased appetite. Serious side effects: thyroid cancer and pancreatitis discussed in detail. 04/13/2024 Opioid abuse, uncomplicated (ICD-10 - F11.10) [...] (ICD-10 - Z11.52) Covid screening is negative. 10/27/2024 Obesity, unspecified (ICD-10 - E66.9) Labs today, consudertaion starting metformin to mitogate weight gain with olanzapine. Will discuss weight concerns with PCP Emiliana Seay NP prior to F/U next week. 12/09/2024 Primary osteoarthritis, left ankle and foot (ICD-10 - M19.072) Will trial NSAID cream 12/29/2024 Obesity, unspecified (ICD-10 - E66.9) Clt to start GLP-1. 12/29/2024 Immunization not carried out because of patient refusal (ICD-10 - Z28.21) decines flu vaccine 04/13/2024 Immunization not carried out because of patient decision for reasons of belief or group pressure (ICD-10 - Z28.1) declines Flu shot. Aware of risks 04/29/2024 Syphilis, unspecified (ICD-10 - A53.9) Lab work drawn as ordered, per protocol using aseptic technique. Client will be notified of all lab values within two weeks, Client agrees with plan, allowed to clarify questions about plan. 10/27/2024 Encounter for screening for COVID-19 (ICD-10 - Z11.52) Covid screening is negative. 12/09/2024 Other hemorrhoids (ICD-10 - K64.8) Agrees to try bowel regimen to prevent constipation 12/09/2024 Drug induced constipation (ICD-10 - K59.03) Encouraged increased fiber intake 03/09/2024 Other 04/01/2024 Other 04/22/2024 Other Time spent in visit: minutes 04/28/2024 Other 07/22/2024 Other 09/23/2024 Other 11/09/2024 Other 03/30/2024 Other 04/13/2024 Other Lab work drawn as ordered, per protocol using aseptic technique. Client will be notified of all lab values within two weeks, Client agrees with plan, allowed to clarify questions about plan. 04/29/2024 Other 04/29/2024 Other 06/24/2024 Other 09/08/2024 Other 10/27/2024 Other 12/09/2024 Other 12/29/2024 Other 12/29/2024 Other Plan Of Treatment Pending Test Test [...] B SURFACE AB IMMUNITY, QN 09/18 CBC 09/08/2024 CBC 07/23/2023 CHLAMYDIA / GC DNA W RFLX 07/23/2023 COMPREHENSIVE METABOLIC PANEL 07/23/2023 LIVER FIBROSIS PANEL 07/23/2023 LIVER FIBROSIS PANEL 10/18/2019 GLYCOHEMOGLOBIN PROFILE 07/23/2023 GLYCOHEMOGLOBIN PROFILE 09/08/2024 HCV VIRAL LOAD 10/18/2019 HCV VIRAL LOAD 07/23/2023 HEP C VIRAL RNA GENOTYPE 10/18/2019 HEP C VIRAL RNA GENOTYPE 07/23/2023 HEP C VIRAL RNA GENOTYPE 01/05/2024 HIV 1 AND 2 ANTIBODY SCREEN 07/23/2023 LIPID PROFILE 09/08/2024 LIPID PROFILE 07/23/2023 MEASLES PROFILE 07/23/2023 PT/INR 10/18/2019 PT/INR 01/05/2024 PT/INR 07/23/2023 TREPONEMAL AB 07/23/2023 TSH CASCADE 07/23/2023 TSH CASCADE 09/08/2024 URINALYSIS 07/23/2023 CR Chest Complex Min 4 views 12/09/2024 CR Foot LT Min 3 Views 02/16/2024 US Liver 12/09/2024 US Liver 04/13/2024 HEPATITIS A,B,C PROFILE 07/23/2023 QUANTIFERON(R)-TB GOLD PLUS, 1 TUBE 06/2023 SARS-CoV-2 RNA, QUAL RT-PCR 01/20/2020 ECHO EXAM OF HEART 12/09/2024 US Duplex Venous Study Bilat 12/01/2024 COMPREHENSIVE METABOLIC PANEL 09/08/2024 US ABDOMEN LIMITED 01/03/2025 Next Appt Details Provider Name:Kathy Franklin, 02/02/2025 10:00:00 AM, [address] [place] [address], [phone], Provider Name:Octaviano austin, 03/31/2025 10:00:00 AM, [address] [place] [address], [phone], Insurance Providers Payer Name Payer Address Payer Phone Subscriber Number Group Number Insured Name Patient Relationship to Insured Coverage Start Date Coverage End Date [place] C[place] [address] [place], [place] [id number] Mikael Ang Self - patient is the insured [place] [employer] [address] [place] [address] [id number] Mikael Ang Self - patient is the insured 9 Medical (General) History Medical History History ICD Code hx heroin/coke use hx anxiety/depression Hep C + - Diagnosed at age 18 Surgical History Surgery Date(Month/Year) appendectomy 18 Hospitalization History Reason Date(Month/Year) [facility] 2024 [facility] ER, right sided facial pain, dc to h ome 02/09/19 [facility] ER, abscess, cellulitis, need of promise sm, folliculitis, dc to home 01/24/19 [facility] ER, left leg edema, dc to home 01/12
== END 2025-01-04 12:57 | disposition home or self-care (01) ==
LOC: HO.LNP 12:56
PROVIDERS: PCP Nurse Practitioner; Visit Provider Nurse Practitioner Family
DX: R31.29 Other microscopic hematuria (principal); F17.210 Nicotine dependence, cigarettes, uncomplicated
CPT/HCPCS: 81003; 88112; 99212